=== PATIENT | female | born 1985 | race Caucasian/White ===

== ENCOUNTER 2018-07-04 22:58 | Outpatient (CLI) | payer MEDICAID ==
[~2018-07-04] VITALS: Ht 154.9 cm; Wt 103.0 kg
[~2018-07-04 22:58] MED LIST: PREN1TAB49; [UNRECOGNIZED DRUG - REMARK]
[2018-07-05 00:06] VITALS: BP 106/56; PULSE 59; RESP 18
[2018-07-05] MEDS ORDERED: CYAN500L3 SL (00:10)
--- NOTE | 2018-07-05 01:06 | HP ---
DATE OF ADMISSION: 07/04/2018 HISTORY OF PRESENT ILLNESS: Ms. Ludivina Degroot is a 33-year-old 6, para 4, EDC 10/21/2018 intr auterine at 24 weeks and 3 days gestational age, presented to triage complaining of increas ed urinary frequency with lower abdominal tenderness. She denies any headache, nausea, vomiting, sondra rtness of breath, or visual changes. Her care took place first at [facility]. MEDICAL HISTORY: None. MEDICATIONS: vitamins. PAST SURGICAL HISTORY: None. OBSTETRIC HISTORY: x4 vaginal deliveries, x1 missed AB. GYNECOLOGIC HISTORY: 12, regular 3 to 4 days. Denies any sexually transmitted disease. Sexually ac tive with 1 partner. SOCIAL HISTORY: Denies any smoking, drugs or alcohol. FAMILY HISTORY: None. REVIEW OF SYSTEMS: All within normal except history of present illness. PHYSICAL EXAMINATION: HEENT: Within normal. LUNGS: CTA bilateral. CARDIOVASCULAR: S1, S2, regular rhythm. ABDOMEN: Soft. Suprapubic tenderness, negative CVA bilateral. EXTREMITIES: Negative. No calf tenderness. PELVIC: Vaginal exam deferred. heart tracing category 1. [place], no contractions. Cervical l ength 4.3 cm with estimated weight consistent with 817 grams. ASSESSMENT: Intrauterine at 24 weeks and 3 days gestational age with symptomatic urinary t ract infection. PLAN: Discharged home with Macrobid 100 mg p.o. b.i.d. #14. Dictated By: DAIN PADILLA/FCO Conf#: [id number] DID#: [id number]
--- NOTE | 2018-07-05 06:54 | TRIAGE ---
OB Triage Datetime Report Generated by CPN: 07/05/2018 06:53 Datetime: 07/05/2018 00:39 Stage of : OB Triage Heart Rate FHR Baseline Rate: 150 FHR Baseline Changes: No Baseline Change Variability: Moderate 6-25 bpm Accelerations: 15X15 Datetime: 07/05/2018 00:14 Time of Arrival: 07/04/2018 22:57 EGA: 24.3 Arrived By: Wheelchair Arrived From: Home Chief Complaint: c/o vag pain and cramping since 1300 and sm amt bleeding at 2200 Movement: Present Contractions: Irregular Time Contractions Began: 07/04/2018 13:00 Rupture of Membranes: Denies Vaginal Bleeding: Small Vaginal Discharge: Denies Recent Sexual Intercouse: Denies Abdominal Trauma: Not Applicable Patient Complaints: Cramping; Other Time Provider Notified: 07/05/2018 00:10 Provider Notified: Dr Lerma Initial Plan: EFM,UA,CVL,KAI,EFW Datetime: 07/04/2018 23:59 Stage of : OB Triage Quality: Mild Pattern: Normal: <= 5 Contractions in 10 Minutes Resting Tone [place]: Relaxed Heart Rate FHR Baseline Rate: 150 Monitor Mode: External US FHR Baseline Changes: No Baseline Change Variability: Moderate 6-25 bpm Accelerations: 15X15 Decelerations: None Category: Category I Pain Presence: Intermittent Pain Type: Cramping Pain Location: Abdomen Datetime: 07/04/2018 23:31 Stage of : OB Triage Maternal Assessment Level of Consciousness: Fully Conscious Headache: Denies Blurred Vision: No Respiratory Effort: Unlabored Nausea/Vomiting: Denies RUQ Epigastric Pain: Denies Facial Edema: None Labor Evaluation Monitor Mode: External Quality: Mild Resting Tone [place]: Relaxed Heart Rate FHR Baseline Rate: 140 Monitor Mode: External US Pain Assessment Pain Scale: 7 Pain Presence: Intermittent Pain Type: Cramping Pain Location: Abdomen
== END 2018-07-05 00:52 | disposition home or self-care (01) ==
LOC: OBT 22:58 → L-D 23:00 → OBT 07-05 00:52
PROVIDERS: ATTEND Obstetrics & Gynecology
DX: O23.42 Unspecified infection of urinary tract in pregnancy, second trimester (principal); Z3A.24 24 weeks gestation of pregnancy
CPT/HCPCS: 76815; 76817; 81001; Z7500; G0463

== ENCOUNTER 2018-08-16 19:08 | Outpatient (CLI) | payer MEDICAID ==
[~2018-08-16] VITALS: Ht 152.4 cm; Wt 104.0 kg
[~2018-08-16 19:08] MED LIST changes: +CYAN500L3 SL; -[UNRECOGNIZED DRUG - REMARK]
[2018-08-16 19:59] VITALS: Ht 152.4 cm; Wt 104.0 kg
[2018-08-16 20:00] VITALS: BP 114/55; PULSE 91; RESP 17
[2018-08-16] MEDS ORDERED: GUAIFENESIN 20 MG/ML 5ML CUP PO ONE (20:30)
--- NOTE | 2018-08-16 22:11 | PN ---
Triage Information Date/Time Reason for visit: cough and fever Weeks of Gestation 30 weeks /Para Diabetes: none Hypertention: none Objective Vital Signs Date Temp Pulse Resp B/P (MAP) Pulse Ox O2 O2 Flow FiO2 Time Delivery Rate 08/16/18 99.1 91 17 114/55 Room Air 20:00 (74) Heart Rate: 120's Heart Rate Comments Reactive Contractions: None Results/Medications Result Diagram: 08/16/182125 Results 24 hrs Laboratory Tests Test 08/16/18 19:10 08/16/18 21:26 Urine Color STRAW Urine Clarity SLIGHTLY CLOUDY A Urine pH 7.0 Urine Specific [place] 1.008 Urine Ketones 1+ H Urine Nitrite NEGATIVE Urine Bilirubin NEGATIVE Urine Urobilinogen NEGATIVE Urine Leukocyte Esterase 1+ H Urine Microscopic RBC 1 Urine Microscopic WBC 3 Urine Squamous Epithelial Cells FEW Urine Hemoglobin NEGATIVE Urine Glucose NEGATIVE Urine Total Protein NEGATIVE White Blood Count 6.4 Red Blood Count 3.91 L Hemoglobin 11.9 L Hematocrit 35.1 L Mean Corpuscular Volume 89.8 Mean Corpuscular Hemoglobin 30.4 Mean Corpuscular Hemoglobin Concent 33.9 Red Cell Distribution Width 14.4 Platelet Count 173 Mean Platelet Volume 11.5 H Immature Granulocytes % 0.200 Neutrophils % 76.3 Lymphocytes % 13.7 L Monocytes % 8.2 Eosinophils % 1.3 Basophils % 0.3 Nucleated Red Blood Cells % 0.0 Immature Granulocytes # 0.010 Neutrophils # 4.9 Lymphocytes # 0.9 Monocytes # 0.5 Eosinophils # 0.1 Basophils # 0.0 Nucleated Red Blood Cells # 0.0 Imaging Results KAI 27 Disposition: Discharge Assessment/Plan Follow up in clinic this week Antepartum testing on 08/19/2018 Patient is advised to have work up for polyhydramnios in her clinic JAN VAIL MD August 16, 2018 22:11
== END 2018-08-16 22:20 | disposition home or self-care (01) ==
LOC: OBT 19:08 → L-D 19:10 → OBT 22:20
PROVIDERS: ATTEND Obstetrics & Gynecology
DX: O26.893 Other specified pregnancy related conditions, third trimester (principal); O40.3XX0 Polyhydramnios, third trimester, not applicable or unspecified; Z3A.30 30 weeks gestation of pregnancy
CPT/HCPCS: 76815; 76817; 76818; 81001; 85025; Z7500; G0463

== ENCOUNTER 2018-08-19 10:49 | Outpatient (CLI) | payer MEDICAID ==
[~2018-08-19] VITALS: Ht 152.4 cm; Wt 103.5 kg
[2018-08-19 11:09] VITALS: BP 105/59; PULSE 56; Ht 152.4 cm; Wt 103.5 kg
--- NOTE | 2018-08-19 14:19 | PN ---
Triage Information Date/Time 08/19/1801/28/1415 Reason for visit: Polyhydramnios Weeks of Gestation 31w /Para Diabetes: none Hypertention: none Additional information KAI 27 here for f/u Objective Vital Signs Date Temp Pulse Resp B/P (MAP) Pulse Ox O2 O2 Flow FiO2 Time Delivery Rate 08/19/18 98.0 56 105/59 11:09 (74) Heart Rate: 130's Heart Rate Comments CAT I tracing Contractions: None Results/Medications Imaging Results BPP 11/17 KAI 20.5 Disposition: Discharge Assessment/Plan IUP 31w Hx of polyhydramnios resolved Plan f/u in one week for KAI EVELYNE CRUMP MD August 19, 2018 14:19
--- NOTE | 2018-08-19 16:30 | TRIAGE ---
OB Triage Datetime Report Generated by CPN: 08/19/2018 16:29 Datetime: 08/19/2018 13:36 Stage of : OB Triage Datetime: 08/19/2018 12:20 Labor Evaluation Frequency: 0 Monitor Mode: External Pattern: Normal: <= 5 Contractions in 10 Minutes Resting Tone [place]: Relaxed Heart Rate FHR Baseline Rate: 135 Monitor Mode: External US Variability: Moderate 6-25 bpm Accelerations: 10X10 Decelerations: None Category: Category I Pain Assessment Pain Scale: 0 Pain Presence: None/Denies Pain Type: N/A Pain Goal: 3 Pain Relief Measures: Comfort Measures Datetime: 08/19/2018 11:50 Stage of : OB Triage Datetime: 08/19/2018 11:05 Stage of : OB Triage Assessment Type: Triage Maternal Assessment Level of Consciousness: Fully Conscious DTR's/Clonus: DTRs 2+; No Clonus Headache: Denies Blurred Vision: No Respiratory Effort: Unlabored; Regular Rhythm; Equal Expansion Breath Sounds, Left: Clear and Equal Breath Sounds, Right: Clear and Equal Nausea/Vomiting: Denies RUQ Epigastric Pain: Denies Facial Edema: None Temperature Route: Axillary Fall Risk Assessment History of Falling: (0) No Secondary Diagnosis: (0) No Ambulatory Aid: (0) Bedrest/Nurse Assist IV Therapy: (0) No Gait: (0) Normal/Bedrest/Immobile Mental Status: (0) Oriented to Own Ability Fall Score: 0 Fall Risk Score Definition: No Risk: No action required Labor Evaluation Frequency: 0 Monitor Mode: External Pattern: Normal: <= 5 Contractions in 10 Minutes Resting Tone [place]: Relaxed Heart Rate FHR Baseline Rate: APPLIED Monitor Mode: External US Pain Assessment Pain Scale: 5 Pain Presence: Constant Pain Type: Pressure Pain Location: Perineum Pain Goal: 3 Pain Relief Measures: Comfort Measures Datetime: 08/19/2018 11:03 Time of Arrival: 08/19/2018 10:42 EGA: 31.0 Arrived By: Ambulatory Arrived From: Home Chief Complaint: FOLLOW UP INCREASED KAI Movement: Present Contractions: Denies/Absent Rupture of Membranes: Denies Vaginal Bleeding: None Vaginal Discharge: Denies Recent Sexual Intercouse: Denies Abdominal Trauma: Not Applicable Patient Complaints: None Time Provider Notified: 08/19/2018 11:50 Provider Notified: ESHAGHIAN Initial Plan: MONITOR, BPP, Datetime: 08/16/2018 22:14 Stage of : OB Triage Datetime: 08/16/2018 22:00 Labor Evaluation Frequency: NONE Monitor Mode: External Resting Tone [place]: Relaxed Heart Rate FHR Baseline Rate: 145 Monitor Mode: External US Variability: Moderate 6-25 bpm Accelerations: 15X15 Decelerations: None Category: Category I Datetime: 08/16/2018 21:45 Stage of : OB Triage Temperature Route: Oral Datetime: 08/16/2018 21:00 Labor Evaluation Frequency: NONE Monitor Mode: External Resting Tone [place]: Relaxed Heart Rate FHR Baseline Rate: 150 Monitor Mode: External US Variability: Marked >25 bpm Accelerations: 15X15 Decelerations: None Category: Category I Datetime: 08/16/2018 20:00 Labor Evaluation Frequency: NONE Monitor Mode: External Resting Tone [place]: Relaxed Heart Rate FHR Baseline Rate: 150 Monitor Mode: External US Variability: Moderate 6-25 bpm Accelerations: 15X15 Decelerations: None Category: Category I Datetime: 08/16/2018 19:28 Stage of : OB Triage Assessment Type: Triage Maternal Assessment Level of Consciousness: Fully Conscious DTR's/Clonus: DTRs 2+; No Clonus Headache: Denies Blurred Vision: No Respiratory Effort: Unlabored; Regular Rhythm; Equal Expansion Breath Sounds, Left: Clear and Equal Breath Sounds, Right: Clear and Equal Nausea/Vomiting: Denies RUQ Epigastric Pain: Denies Lower Extremities Edema: None Degree: None Upper Extremities Edema: None Degree: None Facial Edema: None Temperature Route: Oral Fall Risk Assessment History of Falling: (0) No Secondary Diagnosis: (0) No Ambulatory Aid: (0) Bedrest/Nurse Assist IV Therapy: (0) No Gait: (0) Normal/Bedrest/Immobile Mental Status: (0) Oriented to Own Ability Fall Score: 0 Fall Risk Score Definition: No Risk: No action required Pain Assessment Pain Scale: 7 Pain Presence: Constant Pain Type: Pressure Pain Location: Back Pain Goal: 3 Pain Relief Measures: Comfort Measures Vaginal Exam Membrane Status: Intact Datetime: 08/16/2018 19:27 Time of Arrival: 08/16/2018 19:05 EGA: 30.4 Arrived By: Ambulatory Arrived From: Home Chief Complaint: PT PRESENTS TO TRIAGE WITH C/O FLU LIKE SYMPTOMS; ALSO STATES PAIN 7/10 IN HER ART K THAT IS CONSTANT Movement: Present Contractions: Denies/Absent Rupture of Membranes: Denies Vaginal Bleeding: None Vaginal Discharge: Denies Recent Sexual Intercouse: Denies Abdominal Trauma: Not Applicable (Annotations: Data stored by CPN on behalf of user) Patient Complaints: Other Initial Plan: EFM Datetime: 08/16/2018 19:18 Contraction Comments: [place]OCO APPLIED Comments: US APPLIED Datetime: 07/05/2018 00:14 EGA: 24.3
== END 2018-08-19 13:45 | disposition home or self-care (01) ==
LOC: OBT 10:49 → L-D 10:51 → OBT 13:45
PROVIDERS: ATTEND Obstetrics & Gynecology
DX: O40.3XX0 Polyhydramnios, third trimester, not applicable or unspecified (principal); Z3A.31 31 weeks gestation of pregnancy
CPT/HCPCS: 76818; Z7500; G0463

== ENCOUNTER 2018-08-23 17:58 | Emergency (ER) | payer MEDICAID ==
[~2018-08-23] VITALS: Wt 100.0 kg
[2018-08-23 18:08] VITALS: BP 140/76; PULSE 76; RESP 18
[2018-08-23] MEDS ORDERED: ALBUTEROL 0.083% (NEB) 2.5 MG/3 ML AMP HHN STA (19:28)
[2018-08-23] MEDS ORDERED: ACETAMINOPHEN 500 MG TAB PO STA (19:28)
[2018-08-23] MEDS ORDERED: AZIT250T PO (20:22)
[2018-08-23] MEDS ORDERED: ALBU18HF INHALATION (20:22)
[2018-08-23] MEDS ORDERED: ACET500C5 PO (20:22)
--- NOTE | 2018-08-23 20:27 | ERD ---
ER Documentation Chief Complaint Chief Complaint COUGH X 1 WEEK, 34 WEEKS , SEND FROM L&D NOT SEEN THERE HPI 33-year-old female presents with cough for the last week which is productive to have mild wheezing. She denies fevers. She has anterior pleuritic chest pain. She denies calf swelling, hemoptysis, syncope. She is approximately 32 weeks by dates .patient denies abdominal pain or vaginal bleeding. She is being monitored by her OB for possible hyperglycemia. ROS All systems reviewed and are negative except as per history of present illness. Medications Home Meds Active Scripts Acetaminophen* (Tylophen*) 500 Mg Capsule, 1 CAP PO Q6H PRN for PAIN AND OR ELEVATED TEMP, #15 CAP Prov:MARY SANDERSON MD 08/23/18 Azithromycin* (Zithromax*) 250 Mg Tablet, 250 MG PO .ZPACK DIRECTED, #6 TAB TAKE 500 MG (2 TABS) THE FIRST DAY THEN 250 MG (1 TAB) DAYS 2-5 Prov:MARY SANDERSON MD 08/23/18 Albuterol Sulfate* (Ventolin HFA*) 18 Gm Hfa.aer.ad, 2 PUFF INHALATION Q4H, #1 INHALER Prov:MARY SANDERSON MD 08/23/18 Reported Medications Cyanocobalamin (Vitamin B-12) (B-12) 500 Mcg Tab.rapdis, 500 MCG SL DAILY 07/05/18 Vits W-Ca,Fe,Fa(<1MG) () 1 Tab Tablet 09/08/10 Allergies Allergies: Coded Allergies: Penicillins (Verified Allergy, Severe, SOB, 07/05/18) vancomycin (Verified Allergy, Severe, RASH, 07/05/18) PMhx/Soc Medical and Surgical Hx: pt denies Surgical Hx History of Surgery: No Anesthesia Reaction: No Hx Neurological Disorder: No Hx Respiratory Disorders: No Hx Cardiac Disorders: No Hx Psychiatric Problems: No Hx Miscellaneous Medical Probl: No Hx Alcohol Use: No Hx Substance Use: No Hx Tobacco Use: No Smoking Status: Never smoker FmHx Family History: No diabetes, No coronary disease, No other Physical Exam Vitals Vital Signs Date Temp Pulse Resp B/P (MAP) Pulse Ox O2 O2 Flow FiO2 Time Delivery Rate 08/23/18 65 20 100 21 19:46 08/23/18 98.1 76 18 140/76 99 18:08 (97) Physical Exam Const: No acute distress Head: Atraumatic Eyes: Normal Conjunctiva ENT: Normal External Ears, Nose and Mouth. TMs and oropharynx normal. Neck: Full range of motion. No meningismus. Resp: Clear to auscultation bilaterally coarse breath sounds with mild wheeze. No rales or retractions appreciated. Cardio: Regular rate and rhythm, no murmurs Abd: Soft, non tender, non distended. Normal bowel sounds Skin: No petechiae or rashes Back: No midline or flank tenderness Ext: No cyanosis, or edema Neur: Awake and alert Psych: Normal Mood and Affect Results 24 hrs Current Medications Medications Dose Sig/Bonnie Start Time Status Last (Trade) Ordered Route PRN Stop Time Admin Dose Reason Admin Albuterol 5 mg ONCE STAT 08/23/18 DC 08/23/18 (Proventil HHN 19:28 19:46 0.083% (Neb)) 08/23/18 19:30 500 mg ONCE STAT 08/23/18 DC 08/23/18 Acetaminophen PO 19:28 19:37 (Tylenol 08/23/18 19:30 Tab) Procedures/MDM Patient given albuterol treatment x1. Patient had no rales or retractions and had clear lungs on serial exam. Patient presents with URI symptoms with productive cough for last week. She has no signs of pneumonia, hypoxemia. Will defer steroids given her possible history of hypoglycemia. She has OB follow- up. We will treat with Zithromax, Ventolin, Tylenol, primary care follow-up and return precautions. The patient was stable with no new complaints during the ER course. Clinically, there is no current evidence to suggest meningitis, sepsis, acute abdomen, pneumonia, stroke, acute coronary syndrome, pulmonary embolism, aortic dissection or any other emergent condition appearing to require further evaluation or hospitalization. Patient counseled regarding my diagnostic impression and care plan. Prior to discharge all questions answered. Pt agrees with treatment plan and understands strict return precautions. Pt is instructed to follow up with primary care provider within 24-48 hours. Precautionary instructions provided including instructions to return to the ER if not improving or for any worsening or changing symptoms or concerns. Disclaimer: Inadvertent spelling and grammatical errors are likely due to EHR/dictation software use and do not reflect on the overall quality of patient care. Also, please note that the electronic time recorded on this note does not necessarily reflect the actual time of the patient encounter. Departure Diagnosis: Primary Impression: Wheeze Additional Impression: Cough Condition: Stable Patient Instructions: Bronchitis With Wheezing (Adult) Additional Instructions: Cheque otro vez con godfrey doctor primario en el proximo franklin or regresa para mas o nueva simptomas. MARY SANDERSON MD August 23, 2018 20:27
== END 2018-08-23 20:40 | disposition home or self-care (01) ==
LOC: FTE 17:58
DX: O26.893 Other specified pregnancy related conditions, third trimester (principal); R06.2 Wheezing; R05 Cough; Z3A.34 34 weeks gestation of pregnancy
CPT/HCPCS: 94664; Z7502; Z7610

== ENCOUNTER 2018-08-26 10:00 | Outpatient (CLI) | payer MEDICAID ==
[~2018-08-26] VITALS: Ht 152.4 cm; Wt 103.9 kg
[~2018-08-26 10:00] MED LIST changes: +ACET500C5 PO; +ALBU18HF INHALATION; +AZIT250T PO
[2018-08-26 10:40] VITALS: Ht 152.4 cm; Wt 103.9 kg
[2018-08-26 10:41] VITALS: BP 117/59; PULSE 79; RESP 18
--- NOTE | 2018-08-26 12:47 | TRIAGE ---
OB Triage Datetime Report Generated by CPN: 08/26/2018 12:47 Datetime: 08/26/2018 12:19 Stage of : OB Triage Datetime: 08/26/2018 11:35 Labor Evaluation Frequency: 0 Monitor Mode: External Pattern: Normal: <= 5 Contractions in 10 Minutes Resting Tone [place]: Relaxed Heart Rate FHR Baseline Rate: 135 Monitor Mode: External US Variability: Moderate 6-25 bpm Accelerations: 10X10 Decelerations: None Category: Category I Pain Assessment Pain Scale: 0 Pain Presence: None/Denies Pain Type: N/A Pain Goal: 3 Pain Relief Measures: Comfort Measures Datetime: 08/26/2018 10:43 Stage of : OB Triage Datetime: 08/26/2018 10:30 Stage of : OB Triage Assessment Type: Triage Maternal Assessment Level of Consciousness: Fully Conscious DTR's/Clonus: DTRs 2+; No Clonus Headache: Denies Blurred Vision: No Respiratory Effort: Unlabored; Regular Rhythm; Equal Expansion Breath Sounds, Left: Clear and Equal Breath Sounds, Right: Clear and Equal Nausea/Vomiting: Denies RUQ Epigastric Pain: Denies Facial Edema: None Temperature Route: Axillary Fall Risk Assessment History of Falling: (0) No Secondary Diagnosis: (0) No Ambulatory Aid: (0) Bedrest/Nurse Assist IV Therapy: (0) No Gait: (0) Normal/Bedrest/Immobile Mental Status: (0) Oriented to Own Ability Fall Score: 0 Fall Risk Score Definition: No Risk: No action required Labor Evaluation Frequency: 0 Monitor Mode: External Pattern: Normal: <= 5 Contractions in 10 Minutes Resting Tone [place]: Relaxed Heart Rate FHR Baseline Rate: 135 Monitor Mode: External US Variability: Moderate 6-25 bpm Accelerations: 10X10 Decelerations: None Category: Category I Pain Assessment Pain Scale: 0 Pain Presence: None/Denies Pain Type: N/A Pain Goal: 3 Pain Relief Measures: Comfort Measures Datetime: 08/26/2018 10:29 Stage of : OB Triage Time of Arrival: 08/26/2018 09:57 EGA: 33.0 Arrived By: Ambulatory Arrived From: Home Chief Complaint: FOLLOW UP KAI HYDRO, DENIES BLEEDING, LEAKING OR UC'S Movement: Present Contractions: Denies/Absent Rupture of Membranes: Denies Vaginal Bleeding: None Vaginal Discharge: Denies Recent Sexual Intercouse: Denies Abdominal Trauma: Not Applicable Patient Complaints: None Time Provider Notified: 08/26/2018 10:43 Provider Notified: GHAYOORI Initial Plan: MONITOR, KAI Datetime: 08/26/2018 10:05 EGA: 32.0 Datetime: 08/19/2018 11:05 Fall Score: 0 Fall Risk Score Definition: No Risk: No action required Datetime: 08/19/2018 11:03 EGA: 31.0 Datetime: 08/16/2018 19:28 Fall Score: 0 Fall Risk Score Definition: No Risk: No action required Datetime: 08/16/2018 19:27 EGA: 30.4 Datetime: 07/05/2018 00:14 EGA: 24.3
--- NOTE | 2018-08-26 13:09 | PREOPHP ---
DATE OF ADMISSION: 08/26/2018 HISTORY OF PRESENT ILLNESS: Ms. Ludivina Degroot is a 33-year-old 6, para 4, EDC 10/14/2018 intr auterine at 33 weeks gestational age, presented to triage today to recheck her KAI secondar y to history of polyhydramnios. She reports good movement. She denies any contractions, vagin al bleeding, or discharge. Her care took place at [facility]. PAST MEDICAL HISTORY: None. MEDICATIONS: vitamins. PAST SURGICAL HISTORY: None. OBSTETRICAL HISTORY: x4 vaginal delivery, x1 missed AB. GYNECOLOGIC HISTORY: 12, regular 3 to 4 days. Denies any sexually transmitted disease. Sexually ac tive with 1 partner. SOCIAL HISTORY: Denies any smoking, drugs or alcohol. FAMILY HISTORY: None. REVIEW OF SYSTEMS: All within normal except history of present illness. PHYSICAL EXAMINATION: HEENT: Within normal. LUNGS: CTA bilateral. CARDIOVASCULAR: S1, S2, regular rhythm. ABDOMEN: Gravid, nontender. Negative CVA bilateral. EXTREMITIES: Negative. No calf tenderness. PELVIC: Vaginal exam deferred. heart tracing category 1. [place], no contractions. Biophysical profile 11/17 with an KAI of 21.2. ASSESSMENT: Intrauterine at 33 weeks gestational age with polyhydramnios stable with good movement. PLAN: Discharge home today with the recommendations of followup with nonstress test, biophysical pro file twice weekly. The patient has an appointment the following Wednesday with the perinatologist. Dictated By: DAIN PADILLA/FCO Conf#: [id number] DID#: [id number]
== END 2018-08-26 12:30 | disposition home or self-care (01) ==
LOC: OBT 10:00 → L-D 10:01 → OBT 12:30
PROVIDERS: ATTEND Obstetrics & Gynecology
DX: O40.3XX0 Polyhydramnios, third trimester, not applicable or unspecified (principal); Z3A.33 33 weeks gestation of pregnancy
CPT/HCPCS: 76818; Z7500; G0463

== ENCOUNTER 2018-09-15 17:16 | Inpatient (IN) | payer MEDICAID ==
[~2018-09-15] VITALS: Ht 152.4 cm; Wt 88.2 kg
[2018-09-15] MEDS: LACTATED RINGER'S 1,000 ML IV SCH (00:30)
[~2018-09-15 17:16] MED LIST changes: -ACET500C5 PO; -ALBU18HF INHALATION; -AZIT250T PO; -CYAN500L3 SL
[2018-09-15 17:36] VITALS: Ht 152.4 cm; Wt 88.2 kg
[2018-09-15 17:41] VITALS: BP 127/64
[2018-09-15] MEDS ORDERED: BETAMET NA PHOS/AC(6 MG/ML) 2 ML INJ SYG IM ONE (18:00)
--- NOTE | 2018-09-15 20:49 | PREOPHP ---
DATE OF ADMISSION: 09/15/2018 HISTORY OF PRESENT ILLNESS: Ms. Ludivina Degroot is a 33-year-old 6, para 4, EDC of 10/21/2018 i ntrauterine at 35 weeks and 6 days gestational age, was sent from clinic today for rule out labor. She reports of having contractions since early this morning. She denies any vaginal bleedin g or discharge. She denies any nausea, vomiting, shortness of breath or visual changes. Her [facility] care took place at . MEDICAL HISTORY: GDM A1. MEDICATIONS: vitamins. PAST SURGICAL HISTORY: None. OBSTETRICAL HISTORY: x4 vaginal delivery, x1 missed AB. GYNECOLOGIC HISTORY: 12, regular 3 to 4 days. Denies any sexually transmitted infections. Sexually active with 1 partner. SOCIAL HISTORY: Denies any smoking, drugs or alcohol. FAMILY HISTORY: None. REVIEW OF SYSTEMS: All within normal except history of present illness. PHYSICAL EXAMINATION: HEENT: Within normal. LUNGS: CTA bilateral. CARDIOVASCULAR: S1, S2. Regular rate, rhythm. ABDOMEN: Gravid, nontender. Negative CVA bilateral. EXTREMITIES: Negative edema. No calf tenderness. PELVIC: Vaginal exam: 2 cm, 50%, -2 station. No cervical change since evaluated in the office. Fe [place] heart tracing category 1. Tocometer: Regular contractions. ASSESSMENT: Intrauterine at 35 weeks and 6 days gestational age, rule out labor. PLAN: Start IV hydration. Consider admit patient to labor and delivery if contractions persist for steroid treatment and GBS prophylaxis. Dictated By: DAIN PADILLA/FCO Conf#: [id number] DID#: [id number]
[2018-09-15] MEDS ORDERED: LACTATED RINGER'S 1,000 ML IV ONE (21:00)
[2018-09-15] MEDS ORDERED: ONDANSETRON 4 MG INJ IV PRN (23:30)
[2018-09-15] MEDS ORDERED: ACETAMINOPHEN 325 MG TAB PO PRN (23:30)
[2018-09-16] MEDS: LACTATED RINGER'S 1,000 ML IV SCH ×3 (01:26→17:44)
[2018-09-16] MEDS: DOCUSATE SODIUM 100 MG CAP PO SCH ×2 (09:45→21:15)
[2018-09-16] MEDS: PRENATAL VITAMIN PO SCH (09:45)
[2018-09-16] MEDS: BETAMET NA PHOS/AC(6 MG/ML) 2 ML INJ SYG IM SCH (14:54)
[2018-09-16] MEDS: NIFEdipine 10 MG CAP PO SCH ×2 (15:31→21:00)
--- NOTE | 2018-09-16 18:11 | PN ---
DATE: 09/16/2018 HISTORY OF PRESENT ILLNESS: The patient is a 33-year-old G6, P4 with 4 previous vaginal deliveries, was admitted secondary to contractions. Overnight, she was only placed for IV hydration. Her cervix is 2 cm dilated; however, thick and high. She has had some bloody show. KAI is elevated for gestational age at 24 and she has gestational diab etes, diet controlled. Placenta is anterior without evidence of previa per report. RECOMMENDATIONS: Tocolysis, betamethasone. For further questions, contact me. Dictated By: LEOPOLDO BURCH MD ST/NTS Conf#: [id number] DID#: [id number] CC: DAIN VILLANUEVA MD; RICHARD MARTINEZ MD;*End*
--- NOTE | 2018-09-16 18:35 | QN ---
Documentation Comment progress note patient seen and evaluated no complaints vs stable afebrile ab gravid nt extremity no edema no calf tenderness ve no active bleeding fhr cat 1 toco occasional ctx Intrauterine at 36 weeks and days gestational ag gdma 1 ctx currently on procardia for tocolysis and steriod tx p/ complete steriod treatment ptl precaution DAIN VILLANUEVA MD Sep 16, 2018 18:35
[2018-09-16] MEDS: INSULIN ASPART [NOVOLOG] 3 ML PEN SC PRN (20:36)
[2018-09-16] MEDS ORDERED: AL HYDROX/MG HYDROX/SIMETH 30 ML CUP PO ONE (21:00)
--- NOTE | 2018-09-16 21:50 | PN ---
Date/Time of Note Date/Time of Note DATE: 09/16/18 TIME: 21:47 OB Subjective Subjective Subjective c/o chest pain, no dypnea OB Objective Heart: Rhythm Normal Abdomen: WNL Extremities: Normal OB Assessment/Plan Other Assessment: IUP 35 weeks, polyhidramnious with chest pain Other plan: [place] po given, no improvement, order ECG, ask hospitalist to evaluate the patient MARY BARILLAS MD Sep 16, 2018 21:50
[2018-09-17] MEDS: NIFEdipine 10 MG CAP PO SCH ×3 (02:59→15:33)
[2018-09-17] MEDS: LACTATED RINGER'S 1,000 ML IV SCH ×3 (08:06→23:26)
[2018-09-17] MEDS: PRENATAL VITAMIN PO SCH (08:21)
[2018-09-17] MEDS: DOCUSATE SODIUM 100 MG CAP PO SCH ×2 (08:26→21:00)
--- NOTE | 2018-09-17 08:33 | PN ---
Date/Time of Note Date/Time of Note DATE: 09/17/18 TIME: 08:29 OB Subjective Subjective Subjective 33-year-old 6 para 4 at 35 weeks and 1 day of gestation with estimated date of delivery October 21, 2018 Patient was admitted for labor and polyhydramnios with KAI of 24 She is gestational diabetic diet control and currently on sliding scale insulin Patient is receiving betamethasone for lung maturity; she has received 1 dose and the second dose is due today She had an episode of chest pain last night which rapid response team was called and they evaluated and assessed the patient EKG and chest x-ray and troponin levels were done Patient reports a history of bronchitis OB Objective Objective Objective Patient is reporting positive movement, denies vaginal bleeding or leaking fluid, denies uterine contractions Patient complains of some chest pain, no shortness of breath O2 sat 99% in room air VS - Last 72 Hours, by Label Date Temp Pulse Resp B/P (MAP) Pulse Ox O2 O2 Flow FiO2 Time Delivery Rate 09/16/18 58 22:42 09/15/18 98.1 127/64 17:41 (85) PROCEDURE: US OB. CLINICAL INDICATION: Station of diabetes TECHNIQUE: Multiple sonographic images of the pelvis were obtained. The images were reviewed on a PACS workstation. COMPARISON: 08/26/2018 FINDINGS: There is a single live intrauterine . cardiac activity is identified at a rate of 130 beats per minute. presentation is cephalic. Placenta is anterior grade II. No placenta previa or abruption is seen. Biophysical profile score is as follows: Breathing 2 Movements 2 Tone 2 Fluid volume 2 Amniotic fluid index = 24 cm Total biophysical profile score = 8/8 IMPRESSION: Biophysical profile score = 8/8 Polyhydramnios RPTAT: HH .Alireza Prasad MD, Date Time Electronically viewed and signed by .Alireza Prasad MD, on 09/15/2018 18:56 .W/ CC: DAIN VILLANUEVA MD [id number] HEENT: WNL Heart: Rhythm Normal Lungs: Clear, Equal Abdomen: WNL Extremities: Normal Reflexes: Normal Cervical Dilatation: 2cm Station: -3 Membranes: Intact Heart Rate: 140's Accelerations: Accelerations Present Decelerations: No Decelerations Varibility: Moderate Contractions on Admission: None OB Assessment/Plan Reason for admission: labor, other (Polyhydramnios) Other plan: 35 weeks and 1 day of gestation with labor and polyhydramnios Status post 1 dose of betamethasone; second dose due today Continue with Procardia 20 mg 6 hours Patient has already been seen by perinatologist Hospitalist consultation pending Copies To: CC: DAIN VILLANUEVA MD ; GE ARMSTRONG MD Sep 17, 2018 08:33
--- NOTE | 2018-09-17 09:46 | CONS ---
Assessment/Plan Assessment/Plan Hospital Course (Demo Recall) Patient is a female with a past medical history significant for diabetes who presents to [facility] for contractions to rule out labor. During this hospitalization patient developed substernal chest pain and internal medicine was consulted. Patient already had 2- troponins, patient's chest pain began yesterday was substernal does not radiate. There is no change with movement or what she does, however patient states that the chest pain is better. Patient has denies any significant shortness of breath or any other acute issues. Patient appears comfortable. Patient denies shortness of breath, dizziness, vision changes, bladder dysfunction, leg dysfunction Objective Physical exam General: Patient is laying in bed and answers questions appropriately Mentation: Patient is alert and oriented 4, Head: Normocephalic atraumatic Eyes: EOMI, pupils reactive to light Neck: Supple, nontender, midline Respiratory: Clear to auscultation bilaterally Cardiovascular: regular rate, no obvious murmurs Gastrointestinal: mildly tender to palpation, bowel sounds heard. Distended abdomen Neurological: Moves all extremities spontaneously Skin: No new skin lesions Assessment and plan Chest pain -Very likely musculoskeletal as patient's pain is reproduced very easily with palpation in the substernal area -EKG is not exactly normal, will consult cardiology, Dr. Sosa -Troponins are negative x2, trending 1 more troponin, echocardiogram pending Diabetes mellitus -Patient on insulin regimen will in the hospital, A1c pending Questionable hypertension -Patient on antihypertensives however does not states she has a history of hypertension or take medications, monitor closely, treat as needed Disposition -Pending cardiology consult, although chest pain is highly likely musculoskeletal. Consultation Date/Type/Reason Admit Date/Time Sep 15, 2018 at 22:55 Date/Time of Note DATE: 09/17/18 TIME: 09:45 Past Medical History Home Meds Reported Medications Vits W-Ca,Fe,Fa(<1MG) () 1 Tab Tablet 09/08/10 Medications Current Medications Lactated Ringer's 1,000 ml @ 125 mls/hr Q8H IV Last administered on 09/17/18at 08:06; Admin Dose 125 MLS/HR; Start 09/15/18 at 23:21 Prenat Multivit/ [place]/Iron/Folic Ac () 1 tab DAILY PO Last administered on 09/17/18at 08:21; Admin Dose 1 TAB; Start 09/16/18 at 09:00 Docusate Sodium (Colace) 100 mg BID PO Last administered on 09/17/18at 08:26; Admin Dose 100 MG; Start 09/16/18 at 09:00 Acetaminophen (Tylenol Tab) 650 mg Q4H PRN PO .PAIN OR TEMP; Start 09/15/18 at 23:30 Ondansetron HCl (Zofran Inj) 4 mg Q6H PRN IV NAUSEA/VOMITING; Start 09/15/18 at 23:30 Betamethasone Acet/Betameth SodPhos (Celestone Soluspan) 12 mg Q24H IM Last administered on 09/16/18at 14:54; Admin Dose 12 MG; Start 09/16/18 at 13:00; Stop 09/17/18 at 13:01 Nifedipine (Procardia) 20 mg Q6 PO Last administered on 09/17/18at 08:21; Admin Dose 20 MG; Start 09/16/18 at 15:30 Insulin Aspart (Novolog Insulin Pen) 60-12,0=0 121-14,0=2 un... 2 HOURS AFTER MEALS PRN SC ELEVATED GLUCOSE Last administered on 09/16/18at 20:36; Admin Dose 8 UNIT; Start 09/16/18 at 15:30 Allergies: Coded Allergies: Penicillins (Verified Allergy, Severe, SOB, 07/05/18) vancomycin (Verified Allergy, Severe, RASH, 07/05/18) Social History Smoking Status: Never smoker Exam/Review of Systems Exam Vitals Vital Signs Date Temp Pulse Resp B/P (MAP) Pulse Ox O2 O2 Flow FiO2 Time Delivery Rate 09/16/18 58 22:42 09/15/18 98.1 127/64 17:41 (85) Intake and Output 09/16/18 09/16/18 09/17/18 1515:00 23:00 07:00 IntakeIntake Total 490 ml 1350 ml 1000 ml OutputOutput Total 400 ml 1200 ml 1500 ml BalanceBalance 90 ml 150 ml -500 ml Results Result Diagram: 09/17/18 0932 Results 24hrs Laboratory Tests Test 09/16/18 11:32 09/16/18 15:03 09/16/18 20:01 09/16/18 22:50 Bedside Glucose 84 122 184 Troponin I < 0.012 Test 09/17/18 05:56 09/17/18 07:32 09/17/18 09:32 Troponin I < 0.012 Bedside Glucose 108 White Blood Count 9.1 Red Blood Count 3.97 L Hemoglobin 11.9 L Hematocrit 35.6 L Mean Corpuscular Volume 89.7 Mean Corpuscular 30.0 Hemoglobin Mean Corpuscular 33.4 Hemoglobin Concent Red Cell Distribution 13.9 Width Platelet Count 176 Mean Platelet Volume 12.4 H Immature Granulocytes % 0.500 H Neutrophils % 76.8 Lymphocytes % 17.0 Monocytes % 5.6 Eosinophils % 0.0 Basophils % 0.1 Nucleated Red Blood 0.0 Cells % Immature Granulocytes # 0.050 H Neutrophils # 7.0 Lymphocytes # 1.6 Monocytes # 0.5 Eosinophils # 0.0 Basophils # 0.0 Nucleated Red Blood 0.0 Cells # Medications Medication Current Medications Lactated Ringer's 1,000 ml @ 125 mls/hr Q8H IV Last administered on 09/17/18at 08:06; Admin Dose 125 MLS/HR; Start 09/15/18 at 23:21 Prenat Multivit/ [place]/Iron/Folic Ac () 1 tab DAILY PO Last administered on 09/17/18 08:21; Admin Dose 1 TAB; Start 09/16/18 at 09:00 Docusate Sodium (Colace) 100 mg BID PO Last administered on 09/17/18at 08:26; Admin Dose 100 MG; Start 09/16/18 at 09:00 Acetaminophen (Tylenol Tab) 650 mg Q4H PRN PO .PAIN OR TEMP; Start 09/15/18 at 23:30 Ondansetron HCl (Zofran Inj) 4 mg Q6H PRN IV NAUSEA/VOMITING; Start 09/15/18 at 23:30 Betamethasone Acet/Betameth SodPhos ([place] Soluspan) 12 mg Q24H IM Last administered on 09/16/18at 14:54; Admin Dose 12 MG; Start 09/16/18 at 13:00; Stop 09/17/18 at 13:01 Nifedipine (Procardia) 20 mg Q6 PO Last administered on 09/17/18at 08:21; Admin Dose 20 MG; Start 09/16/18 at 15:30 Insulin Aspart (Novolog Insulin Pen) 60-12,0=0 121-14,0=2 un... 2 HOURS AFTER MEALS PRN SC ELEVATED GLUCOSE Last administered on 09/16/18at 20:36; Admin Dose 8 UNIT; Start 09/16/18 at 15:30 AYANNA DAVILA Sep 17, 2018 09:46
[2018-09-17] MEDS: INSULIN ASPART [NOVOLOG] 3 ML PEN SC PRN ×3 (09:58→20:26)
[2018-09-17] MEDS: BETAMET NA PHOS/AC(6 MG/ML) 2 ML INJ SYG IM SCH (14:20)
--- NOTE | 2018-09-17 15:38 | RADRPT ---
Echocardiogram Report Patient Name: OMARI FONTAINEPatient ID: [id number] : 1985 (33y 3m)Study Date: 09/17/2018 1:49:17 PM Gender: FAccession #: [id number] [place] [facility] [place] [facility] Ref.Physician: AYANNA DAVILA Height(Cm): 152 BSA: 1.93Weight(Kg): 88 Quality: AdequateOrder Physician: AYANNA DAVILA Account #: Procedures: Echocardiographic Report: Transthoracic echocardiogram with 2D, M-Mode, and doppler examination, poor subcostal images. Indications: Chest Pain. Measurements: 2D/M Mode Doppler Measurement Value Normal Range Measurement Value Normal Range LVIDd 2D 4.8 [ 3.8 - 5.2 ] cm AV Peak Andrew 1.8 [ 100.0 - 170.0 ] cm/se c LVIDs 2D 3.0 [ 2.2 - 3.5 ] cm AV Peak PG 13.0 [ 2.0 - 9.0 ] mmHg LVPWd 2D 0.7 [ 0.6 - 0.9 ] cm LVOT Peak Andrew 1.1 [ 70.0 - 110.0 ] cm/sec IVSd 2D 0.9 [ 0.6 - 0.9 ] cm LVOT Peak PG 5.0 [ 2.0 - 6.0 ] mmHg AoR Diam 2D 3.3 [ 2.3 - 3.1 ] cm MV E Peak Andrew 1.2 [ 60.0 - 130.0 ] cm/sec EDV 2D 110.0 [ 46.0 - 106.0 ] ml MV A Peak Andrew 0.9 [ 100.0 - 120.0 ] cm/se c ESV 2D 35.9 [ 14.0 - 42.0 ] ml MV E/A 1.3 [ 0.8 - 1.5 ] ratio EF 2D 67.4 [ 54.0 - 74.0 ] percent MV PHT 53.0 [ 20.0 - 100.0 ] msec LA Dimen 2D 4.5 [ 2.7 - 3.8 ] cm MV Decel Time 182 [ 104 - 258 ] msec MV Decel Williams 7 Lat E` Andrew 0.2 [ 10.0 - 15.0 ] cm/sec Lateral E/E` 6.6 [ 1.0 - 2.0 ] ratio Med E` Andrew 0.1 cm/sec MV E/A 1.3 [ 0.8 - 1.5 ] ratio MVA PHT 4.2 [ 2.0 - 4.0 ] cm2 TR Peak Andrew 2.5 [ 100.0 - 280.0 ] cm/se c TR Peak PG 24.0 mmHg PV Peak Andrew 1.3 [ 40.0 - 80.0 ] cm/sec PV Peak PG 7.0 mmHg RVSP 27.0 [ 10.0 - 36.0 ] mmHg RA Pressure 3.0 mmHg Findings: Left Ventricle: Normal left ventricular systolic function. Normal left ventricular cavity size. Normal left ventricular wall thickness. Ejection fraction is visually estimated at >65 %. Tissue Doppler/Mitral Doppler indices are within normal limits. E/E'= 7. Right Ventricle: Normal right ventricular size. Normal right ventricular systolic function. Left Atrium: Upper limit of normal left atrial size. Right Atrium: The right atrium is normal in size. Atrial Septum: Not well visualized. Mitral Valve: Normal appearance and function of the mitral valve with trace physiologic regurgitation. Aortic Valve: Normal appearance of the aortic valve. Trace aortic valve regurgitation. Tricuspid Valve: Normal appearance of the tricuspid valve. The estimated Peak RVSP is 27 mmHg. There is mild tricuspid regurgitation. Pulmonic Valve: Normal pulmonic valve appearance. There is trace pulmonic regurgitation. Pericardium: Normal pericardium with no significant pericardial effusion. Aorta: Normal aortic root. IVC: Normal size and normal respiratory collapse consistent with normal right atrial pressure. Pulmonary Artery: Normal pulmonary artery size. Conclusions: Normal left ventricular systolic function. Normal left ventricular cavity size. Normal left ventricular wall thickness. Ejection fraction is visually estimated at >65 %. Tissue Doppler/Mitral Doppler indices are within normal limits. E/E'= 7. Electronically Signed By: Sami Sosa 2018-09-17 15:37:22 PDT
--- NOTE | 2018-09-17 15:54 | RADRPT ---
Vent Rate: 51 bpm RR Interval: 1180 msec GA Interval: 133 msec QRS Duration: 97 msec QT Interval: 475 msec QTC Interval: 437 msec P-R-T [place]: 30 - 46 - 13 degrees Sinus rhythm...normal P axis, V-rate 50- 99 Electronically Signed By: Satnam Bermeo
--- NOTE | 2018-09-17 17:17 | CONS ---
Assessment/Plan Assessment/Plan Hospital Course (Demo Recall) Assessment: Chest pain - appears musculoskeletal, ruled out for myocardial infarction, no evidence on chest x-ray or echocardiogram to suggest aortic dissection Diabetes mellitus Intrauterine with labor - per obstetrics Recommendations: -no additional cardiac work up at this time Consultation Date/Type/Reason Admit Date/Time Sep 15, 2018 at 22:55 Type of Consult Cardiology Date/Time of Note DATE: 09/17/18 TIME: 17:10 Hx of Present Illness The patient is a 33 year-old female who is admitted with labor. She reports two days of retrosternal chest pain, with reproducible tenderness on exam. EKG shows normal sinus rhythm without ischemic changes. Troponins have been negative x 3. Chest x-ray with normal cardiac silhouette and without mediastinal widening. Transthoracic echocardiogram normal with normal aortic root. 14 point review of systems negative other than per HPI. Past Medical History Medical History: diabetes Home Meds Reported Medications Vits W-Ca,Fe,Fa(<1MG) () 1 Tab Tablet 09/08/10 Medications Current Medications Lactated Ringer's 1,000 ml @ 125 mls/hr Q8H IV Last administered on 09/17/18at 15:28; Admin Dose 125 MLS/HR; Start 09/15/18 at 23:21 Prenat Multivit/ [place]/Iron/Folic Ac () 1 tab DAILY PO Last administered on 09/17/18at 08:21; Admin Dose 1 TAB; Start 09/16/18 at 09:00 Docusate Sodium (Colace) 100 mg BID PO Last administered on 09/17/18at 08:26; Admin Dose 100 MG; Start 09/16/18 at 09:00 Acetaminophen (Tylenol Tab) 650 mg Q4H PRN PO .PAIN OR TEMP; Start 09/15/18 at 23:30 Ondansetron HCl (Zofran Inj) 4 mg Q6H PRN IV NAUSEA/VOMITING; Start 09/15/18 at 23:30 Nifedipine (Procardia) 20 mg Q6 PO Last administered on 09/17/18at 15:33; Admin Dose 20 MG; Start 09/16/18 at 15:30 Insulin Aspart (Novolog Insulin Pen) 60-12,0=0 121-14,0=2 un... 2 HOURS AFTER MEALS PRN SC ELEVATED GLUCOSE Last administered on 09/17/18at 14:18; Admin Dose 2 UNIT; Start 09/16/18 at 15:30 Allergies: Coded Allergies: Penicillins (Verified Allergy, Severe, SOB, 07/05/18) vancomycin (Verified Allergy, Severe, RASH, 07/05/18) Family History Significant Family History: no pertinent family hx Social History Smoking Status: Never smoker Exam/Review of Systems Vital Signs Vitals Vital Signs Date Temp Pulse Resp B/P (MAP) Pulse Ox O2 O2 Flow FiO2 Time Delivery Rate 09/16/18 58 22:42 09/15/18 98.1 127/64 17:41 (85) Intake and Output 09/16/18 09/16/18 09/17/18 1515:00 23:00 07:00 IntakeIntake Total 490 ml 1350 ml 1000 ml OutputOutput Total 400 ml 1200 ml 1500 ml BalanceBalance 90 ml 150 ml -500 ml Exam Constitutional: alert, well developed Psych: no complaints, nl mood/affect Head: normocephalic, atraumatic Eyes: nl conjunctiva, nl lids ENMT: nl external ears & nose, nl nasal mucosa & septum Neck: supple, non-tender Respiratory: clear to auscultation, normal air movement Cardiovascular: regular rate and rhythm Gastrointestinal: soft Musculoskeletal: nl extremities to inspection Extremities: No cyanosis, No clubbing, No edema Neurological: nl mental status Labs Result Diagram: 09/17/18 0932 09/17/18 0932 Results 24hrs Laboratory Tests Test 09/16/18 20:01 09/16/18 22:50 09/17/18 05:56 09/17/18 07:32 Bedside Glucose 184 108 Troponin I < 0.012 < 0.012 Test 09/17/18 09:32 09/17/18 09:43 09/17/18 12:37 09/17/18 14:08 White Blood Count 9.1 Red Blood Count 3.97 L Hemoglobin 11.9 L Hematocrit 35.6 L Mean Corpuscular Volume 89.7 Mean Corpuscular 30.0 Hemoglobin Mean Corpuscular 33.4 Hemoglobin Concent Red Cell Distribution 13.9 Width Platelet Count 176 Mean Platelet Volume 12.4 H Immature Granulocytes % 0.500 H Neutrophils % 76.8 Lymphocytes % 17.0 Monocytes % 5.6 Eosinophils % 0.0 Basophils % 0.1 Nucleated Red Blood 0.0 Cells % Immature Granulocytes # 0.050 H Neutrophils # 7.0 Lymphocytes # 1.6 Monocytes # 0.5 Eosinophils # 0.0 Basophils # 0.0 Nucleated Red Blood 0.0 Cells # Sodium Level 138 Potassium Level 3.5 Chloride Level 110 Carbon Dioxide Level 20 L Anion Gap 8 Blood Urea Nitrogen 5 L Creatinine 0.45 Est Glomerular Filtrat > 60 Rate mL/min Glucose Level 146 Calcium Level 9.3 Total Bilirubin 0.6 Direct Bilirubin 0.00 Indirect Bilirubin 0.6 Aspartate Amino 36 Transf (AST/SGOT) Alanine 52 Aminotransferase (ALT/SG PT) Alkaline Phosphatase 117 Total Protein 6.7 Albumin 3.2 L Globulin 3.50 H Albumin/Globulin Ratio 0.91 Bedside Glucose 142 137 Troponin I < 0.012 Medications Medications Current Medications Lactated Ringer's 1,000 ml @ 125 mls/hr Q8H IV Last administered on 09/17/18 15:28; Admin Dose 125 MLS/HR; Start 09/15/18 at 23:21 Prenat Multivit/ [place]/Iron/Folic Ac () 1 tab DAILY PO Last administered on 09/17/18 08:21; Admin Dose 1 TAB; Start 09/16/18 at 09:00 Docusate Sodium (Colace) 100 mg BID PO Last administered on 09/17/18 08:26; Admin Dose 100 MG; Start 09/16/18 at 09:00 Acetaminophen (Tylenol Tab) 650 mg Q4H PRN PO .PAIN OR TEMP; Start 09/15/18 at 23:30 Ondansetron HCl (Zofran Inj) 4 mg Q6H PRN IV NAUSEA/VOMITING; Start 09/15/18 at 23:30 Nifedipine (Procardia) 20 mg Q6 PO Last administered on 09/17/18 15:33; Admin Dose 20 MG; Start 09/16/18 at 15:30 Insulin Aspart (Novolog Insulin Pen) 60-12,0=0 121-14,0=2 un... 2 HOURS AFTER MEALS PRN SC ELEVATED GLUCOSE Last administered on 09/17/18 14:18; Admin Dose 2 UNIT; Start 09/16/18 at 15:30 ANTONI GRAVES MD Sep 17, 2018 17:17
[2018-09-18] MEDS: LACTATED RINGER'S 1,000 ML IV SCH ×3 (07:08→23:42)
[2018-09-18] MEDS: PRENATAL VITAMIN PO SCH (09:10)
[2018-09-18] MEDS: DOCUSATE SODIUM 100 MG CAP PO SCH ×2 (09:10→21:34)
--- NOTE | 2018-09-18 09:24 | QN ---
Documentation Comment progress note patient seen and evaluated no complaints no ctx, no chest pain, sob vs stable afebrile HEENT wnl lung cta b/l ab gravid nt extremity no edema no calf tenderness ve no active bleeding fhr cat 1 toco occasional ctx Intrauterine at 35 weeks and 2 days gestational ag gdma 1 ctx resolved, polyhydramnios p/ continue to monitor patient closely labor precautions f/u with perinatology DAIN VILLANUEVA MD Sep 18, 2018 09:24
[2018-09-18] MEDS ORDERED: POTASSIUM CHLORIDE (SR) 20 MEQ TAB PO ONE (09:30)
--- NOTE | 2018-09-18 12:40 | PN ---
Date/Time of Note Date/Time of Note DATE: 09/18/18 TIME: 12:38 Objective Vitals Vital Signs Date Temp Pulse Resp B/P (MAP) Pulse Ox O2 O2 Flow FiO2 Time Delivery Rate 09/16/18 58 22:42 09/15/18 98.1 127/64 17:41 (85) Intake and Output 09/17/18 09/17/18 09/18/18 1515:00 23:00 07:00 IntakeIntake Total 1000 ml 850 ml 1115 ml OutputOutput Total 1000 ml 2300 ml 1300 ml BalanceBalance 0 ml -1450 ml -185 ml Results Result Diagram: 09/18/1862409/18/18624 Medications Medications Current Medications Lactated Ringer's 1,000 ml @ 125 mls/hr Q8H IV Last administered on 09/18/18at 07:08; Admin Dose 125 MLS/HR; Start 09/15/18 at 23:21 Prenat Multivit/ [place]/Iron/Folic Ac () 1 tab DAILY PO Last admi nistered on 09/18/18at 09:10; Admin Dose 1 TAB; Start 09/16/18 at 09:00 Docusate Sodium (Colace) 100 mg BID PO Last administered on 09/18/18at 09:10; Admin Dose 100 MG; Start 09/16/18 at 09:00 Acetaminophen (Tylenol Tab) 650 mg Q4H PRN PO .PAIN OR TEMP; Start 09/15/18 at 23:30 Ondansetron HCl (Zofran Inj) 4 mg Q6H PRN IV NAUSEA/VOMITING; Start 09/15/18 at 23:30 Insulin Aspart (Novolog Insulin Pen) 60-12,0=0 121-14,0=2 un... 2 HOURS AFTER MEALS PRN SC ELEVATED GLUCOSE Last administered on 09/17/18at 20:26; Admin Dose 4 UNIT; Start 09/16/18 at 15:30 VTE Prophylaxis SCD contraindication: other Lines/Catheters IV Catheter Type: Fatima in Place: No Assessment/Plan Hospital Course Subjective Still some residual chest issues however minimal to almost no discomfort Objective Physical exam General: Patient is laying in bed and answers questions appropriately Mentation: Patient is alert and oriented 4, Head: Normocephalic atraumatic Eyes: EOMI, pupils reactive to light Neck: Supple, nontender, midline Respiratory: Clear to auscultation bilaterally Cardiovascular: regular rate, no obvious murmurs Gastrointestinal: mildly tender to palpation, bowel sounds heard. 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 AYANNA DAVILA Sep 18, 2018 12:40
[2018-09-18] MEDS: INSULIN ASPART [NOVOLOG] 3 ML PEN SC PRN ×2 (14:15→20:13)
--- NOTE | 2018-09-19 09:09 | QN ---
Documentation Comment progress note patient seen and evaluated no complaints no ctx, no chest pain, sob vs stable afebrile HEENT wnl lung cta b/l ab gravid nt extremity no edema no calf tenderness ve no active bleeding fhr cat 1 toco occasional ctx Intrauterine at 35 weeks and 3 days gestational ag gdma 1 ctx resolved, polyhydramnios p/ continue to monitor patient closely labor precautions bpp today f/u with perinatology DAIN VILLANUEVA MD Sep 19, 2018 09:09
[2018-09-19] MEDS: DOCUSATE SODIUM 100 MG CAP PO SCH ×2 (09:25→21:29)
[2018-09-19] MEDS: PRENATAL VITAMIN PO SCH (09:25)
[2018-09-19] MEDS: LACTATED RINGER'S 1,000 ML IV SCH (09:25)
[2018-09-20] MEDS: DOCUSATE SODIUM 100 MG CAP PO SCH (09:04)
[2018-09-20] MEDS: PRENATAL VITAMIN PO SCH (09:04)
--- NOTE | 2018-09-20 18:02 | QN ---
Documentation Comment progress note patient seen and evaluated no complaints, pt has minimal vaginal spotting last night no ctx, no chest pain, sob vs stable afebrile HEENT wnl lung cta b/l ab gravid nt extremity no edema no calf tenderness ve no active bleeding fhr cat 1 toco occasional ctx Intrauterine at 35 weeks and 4 days gestational ag gdma 1 ctx resolved p/ continue to monitor patient closely labor precautions consider discharge home tomorrow if clear by perinatology f/u with perinatology DAIN VILLANUEVA MD Sep 20, 2018 18:02
[2018-09-21] MEDS: PRENATAL VITAMIN PO SCH (11:01)
[2018-09-21] MEDS: DOCUSATE SODIUM 100 MG CAP PO SCH (11:01)
--- NOTE | 2018-09-21 18:38 | PD.PPDC ---
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
--- NOTE | 2018-09-21 21:30 | DS ---
DATE OF ADMISSION: 09/15/2018 DATE OF DISCHARGE: PRIMARY DIAGNOSIS: Intrauterine at 35 weeks gestational age with contractions poly hydramnios anemia, undelivered. PROCEDURE: None. CONDITION ON DISCHARGE: Stable. ACTIVITY: None per vagina, no, no heavy lifting. DIET: 2000-kilocalorie diet. DISCHARGE SUMMARY: Ms. Ludivina Degroot presented to triage on 09/15/2018 for contractions. She was 2 cm dilated, 50% effaced, -2 station. After consultation with perinatologist recommended stero id treatment with tocolysis. The patient also received IV hydration. She is currently stable. She denies any contractions, vaginal bleeding, or discharge. She will be discharged home today with stri ct labor precautions and kick count. She will follow up for [facility] twice weekly. Follow up in the office tomorrow for her scheduled care. Dictated By: DAIN PADILLA/FCO Conf#: [id number] DID#: [id number]
== END 2018-09-21 19:20 | disposition home or self-care (01) | DRG 832 ==
LOC: L-D 17:16 → OBT 17:16 → L-D 22:55 → OBT 22:55 → L-D 09-16 03:18 → PP1 09-17 22:06
PROVIDERS: ADMIT Obstetrics & Gynecology; ATTEND Obstetrics & Gynecology
DX: O40.3XX0 Polyhydramnios, third trimester, not applicable or unspecified (principal); O47.03 False labor before 37 completed weeks of gestation, third trimester; O99.013 Anemia complicating pregnancy, third trimester; Z3A.35 35 weeks gestation of pregnancy
CPT/HCPCS: 71045; 76815; 76818; 80048; 80053; 81001; 82962; 83036; 83735; 84100; 84484; 85025; 85610; 85730; 86592; 86850; 86900; 86901; 87086; 87340; 93005; 93306; 96360; G0463; J0702; J1815; J7120

== ENCOUNTER 2018-09-26 10:09 | Outpatient (CLI) | payer MEDICAID ==
[~2018-09-26] VITALS: Ht 152.4 cm; Wt 102.5 kg
[2018-09-26 10:27] VITALS: Ht 152.4 cm; Wt 102.5 kg
--- NOTE | 2018-09-26 12:30 | TRIAGE ---
OB Triage Datetime Report Generated by CPN: 09/26/2018 12:29 Datetime: 09/26/2018 11:37 Maternal Assessment Level of Consciousness: Keenly Alert, Responsive DTR's/Clonus: DTRs 1+ Headache: Denies Blurred Vision: No Nausea/Vomiting: Denies RUQ Epigastric Pain: Denies Facial Edema: None Labor Evaluation Frequency: NONE Monitor Mode: External Resting Tone [place]: Relaxed Heart Rate FHR Baseline Rate: 135 Monitor Mode: External US Variability: Moderate 6-25 bpm Accelerations: 15X15 Decelerations: None Category: Category I Pain Assessment Pain Scale: 0 Pain Presence: None/Denies Pain Type: N/A Pain Goal: 3 Membrane Status: Intact Datetime: 09/26/2018 10:46 EGA: 36.3 Datetime: 09/26/2018 10:36 Maternal Assessment Level of Consciousness: Keenly Alert, Responsive DTR's/Clonus: DTRs 1+ Headache: Denies Blurred Vision: No Respiratory Effort: Unlabored Breath Sounds, Left: Clear and Equal Breath Sounds, Right: Clear and Equal Nausea/Vomiting: Denies RUQ Epigastric Pain: Denies Facial Edema: None Labor Evaluation Frequency: NONE Monitor Mode: External Resting Tone [place]: Relaxed Heart Rate FHR Baseline Rate: 140 Monitor Mode: External US Variability: Moderate 6-25 bpm Accelerations: 10X10 Decelerations: None Category: Category I Pain Assessment Pain Scale: 0 Pain Presence: None/Denies Pain Type: N/A Pain Goal: 3 Membrane Status: Intact Datetime: 09/26/2018 10:00 Time of Arrival: 09/26/2018 10:00 EGA: 36.3 Arrived By: Ambulatory Arrived From: Home Chief Complaint: NST AND BPP F/U FOR POLY AND GDM DIET CONTROL Movement: Present Contractions: Denies/Absent Rupture of Membranes: Denies Vaginal Discharge: Denies Recent Sexual Intercouse: Denies Abdominal Trauma: Not Applicable Additional Patient Complaints: NONE Time Provider Notified: 09/26/2018 10:00 Provider Notified: ESHAGIAN Initial Plan: MONITOR AND NST Datetime: 09/21/2018 17:28 Labor Evaluation Frequency: 0 Monitor Mode: External Resting Tone [place]: Relaxed Heart Rate FHR Baseline Rate: 130 Monitor Mode: External US FHR Baseline Changes: No Baseline Change Variability: Moderate 6-25 bpm Accelerations: 15X15 Decelerations: None Category: Category I Datetime: 09/21/2018 16:28 Labor Evaluation Frequency: 0 Monitor Mode: External Resting Tone [place]: Relaxed Heart Rate FHR Baseline Rate: 130 Monitor Mode: External US FHR Baseline Changes: No Baseline Change Variability: Moderate 6-25 bpm Accelerations: 15X15 Decelerations: None Category: Category I Datetime: 09/21/2018 15:42 Labor Evaluation Frequency: 0 Monitor Mode: External Resting Tone [place]: Relaxed Heart Rate FHR Baseline Rate: 120 Monitor Mode: External US FHR Baseline Changes: No Baseline Change Variability: Moderate 6-25 bpm Accelerations: 15X15 Decelerations: None Category: Category I Datetime: 09/21/2018 15:41 Bedside Blood Glucose: 116 Datetime: 09/21/2018 14:26 Labor Evaluation Frequency: 0 Monitor Mode: External Resting Tone [place]: Relaxed Heart Rate FHR Baseline Rate: 120 Monitor Mode: External US FHR Baseline Changes: No Baseline Change Variability: Moderate 6-25 bpm Accelerations: 15X15 Decelerations: None Category: Category I Datetime: 09/21/2018 14:21 Comments: monitors on Datetime: 09/21/2018 10:56 Bedside Blood Glucose: 102 Datetime: 09/21/2018 10:55 Labor Evaluation Frequency: 0 Monitor Mode: External Resting Tone [place]: Relaxed Heart Rate FHR Baseline Rate: 130 Monitor Mode: External US FHR Baseline Changes: No Baseline Change Variability: Moderate 6-25 bpm Accelerations: 15X15 Decelerations: None Category: Category I Datetime: 09/21/2018 09:56 Labor Evaluation Frequency: 0 Monitor Mode: External Resting Tone [place]: Relaxed Heart Rate FHR Baseline Rate: 130 Monitor Mode: External US FHR Baseline Changes: No Baseline Change Variability: Moderate 6-25 bpm Accelerations: 15X15 Decelerations: None Category: Category I Datetime: 09/21/2018 08:48 Bedside Blood Glucose: 81 Datetime: 09/21/2018 08:46 Assessment Type: Ongoing Assessment Maternal Assessment Level of Consciousness: Keenly Alert, Responsive DTR's/Clonus: DTRs 2+; No Clonus Headache: Denies Blurred Vision: No Respiratory Effort: Unlabored; Regular Rhythm; Equal Expansion Breath Sounds, Left: Clear and Equal Breath Sounds, Right: Clear and Equal Nausea/Vomiting: Denies RUQ Epigastric Pain: Denies Facial Edema: None Fall Risk Assessment History of Falling: (0) No Secondary Diagnosis: (0) No Ambulatory Aid: (0) Bedrest/Nurse Assist IV Therapy: (0) No Gait: (0) Normal/Bedrest/Immobile Mental Status: (0) Oriented to Own Ability Fall Score: 0 Fall Risk Score Definition: No Risk: No action required Datetime: 09/21/2018 08:39 Labor Evaluation Frequency: 0 Monitor Mode: External Resting Tone [place]: Relaxed Heart Rate FHR Baseline Rate: 130 Monitor Mode: External US FHR Baseline Changes: No Baseline Change Variability: Moderate 6-25 bpm Accelerations: 15X15 Decelerations: None Category: Category I Pain Presence: None/Denies Pain Assessment Comments: no vaginal bleeding Datetime: 09/21/2018 03:00 Labor Evaluation Frequency: 0 Monitor Mode: External Duration (sec)2399: 0 Pattern: Normal: <= 5 Contractions in 10 Minutes Resting Tone [place]: Relaxed Heart Rate FHR Baseline Rate: 140 Monitor Mode: External US FHR Baseline Changes: No Baseline Change Variability: Moderate 6-25 bpm Accelerations: 15X15 Decelerations: None Category: Category I Pain Assessment Pain Scale: 0 Pain Presence: None/Denies Pain Type: N/A Membrane Status: Intact Datetime: 09/21/2018 01:17 Stage of : Antepartum Breath Sounds, Left: Clear and Equal Breath Sounds, Right: Clear and Equal Labor Evaluation Frequency: 0 Monitor Mode: External Duration (sec)2399: 0 Pattern: Normal: <= 5 Contractions in 10 Minutes Resting Tone [place]: Relaxed Heart Rate FHR Baseline Rate: 135 Monitor Mode: External US FHR Baseline Changes: No Baseline Change Variability: Moderate 6-25 bpm Accelerations: 15X15 Decelerations: None Category: Category I Pain Assessment Pain Scale: 0 Pain Type: N/A Pain Goal: 0 Datetime: 09/21/2018 00:30 Stage of : Antepartum Monitor Mode: External Quality: Mild Pattern: Normal: <= 5 Contractions in 10 Minutes Resting Tone [place]: Relaxed Heart Rate FHR Baseline Rate: 135 Monitor Mode: External US FHR Baseline Changes: No Baseline Change Variability: Moderate 6-25 bpm Accelerations: 15X15 Decelerations: None Category: Category I Pain Assessment Pain Scale: 0 Pain Presence: None/Denies Pain Type: N/A Datetime: 09/20/2018 23:39 Stage of : Antepartum Headache: Denies Blurred Vision: No Respiratory Effort: Unlabored Breath Sounds, Left: Clear and Equal Breath Sounds, Right: Clear and Equal Labor Evaluation Frequency: 0 Monitor Mode: External Duration (sec)2399: 0 Pattern: Normal: <= 5 Contractions in 10 Minutes Resting Tone [place]: Relaxed Heart Rate FHR Baseline Rate: 140 Monitor Mode: External US FHR Baseline Changes: No Baseline Change Variability: Moderate 6-25 bpm Accelerations: 15X15 Decelerations: None Category: Category I Pain Assessment Pain Scale: 0 Pain Presence: None/Denies Pain Type: N/A Datetime: 09/20/2018 19:59 Stage of : Antepartum Maternal Assessment Level of Consciousness: Keenly Alert, Responsive DTR's/Clonus: DTRs 2+ Headache: Denies Blurred Vision: No Respiratory Effort: Unlabored Breath Sounds, Left: Clear and Equal Breath Sounds, Right: Clear and Equal Nausea/Vomiting: Denies RUQ Epigastric Pain: Denies Facial Edema: None Bedside Blood Glucose: 98 Labor Evaluation Frequency: 0 Monitor Mode: External Duration (sec)2399: 0 Pattern: Normal: <= 5 Contractions in 10 Minutes Resting Tone [place]: Relaxed Contraction Comments: PT STATES NO PRESSURE OR PAIN FELT Heart Rate FHR Baseline Rate: 135 Monitor Mode: External US FHR Baseline Changes: No Baseline Change Variability: Moderate 6-25 bpm Accelerations: 15X15 Decelerations: None Category: Category I Pain Assessment Pain Scale: 0 Pain Presence: None/Denies Pain Type: N/A Pain Assessment Comments: DAUGHTER AT BEDSIDE Membrane Status: Intact Datetime: 09/20/2018 16:54 Labor Evaluation Frequency: 0 Monitor Mode: External Resting Tone [place]: Relaxed Heart Rate FHR Baseline Rate: 130 Monitor Mode: External US FHR Baseline Changes: No Baseline Change Variability: Moderate 6-25 bpm Accelerations: 15X15 Decelerations: None Category: Category I Datetime: 09/20/2018 15:53 Labor Evaluation Frequency: 0 Monitor Mode: External Resting Tone [place]: Relaxed Heart Rate FHR Baseline Rate: 130 Monitor Mode: External US FHR Baseline Changes: No Baseline Change Variability: Moderate 6-25 bpm Accelerations: 15X15 Decelerations: None Category: Category I Datetime: 09/20/2018 15:32 Bedside Blood Glucose: 99 Datetime: 09/20/2018 14:57 Labor Evaluation Frequency: 0 Monitor Mode: External Resting Tone [place]: Relaxed Heart Rate FHR Baseline Rate: 130 Monitor Mode: External US FHR Baseline Changes: No Baseline Change Variability: Moderate 6-25 bpm Accelerations: 15X15 Decelerations: None Category: Category I Datetime: 09/20/2018 14:14 Labor Evaluation Frequency: 0 Monitor Mode: External Resting Tone [place]: Relaxed Heart Rate FHR Baseline Rate: 130 Monitor Mode: External US FHR Baseline Changes: No Baseline Change Variability: Moderate 6-25 bpm Accelerations: 15X15 Decelerations: None Category: Category I Datetime: 09/20/2018 13:03 Contraction Comments: monitors on after shower Datetime: 09/20/2018 10:47 Labor Evaluation Frequency: 0 Monitor Mode: External Resting Tone [place]: Relaxed Heart Rate FHR Baseline Rate: 140 Monitor Mode: External US FHR Baseline Changes: No Baseline Change Variability: Moderate 6-25 bpm Accelerations: 15X15 Decelerations: None Category: Category I Pain Assessment Pain Scale: 4 Pain Type: Cramping Pain Goal: 0 Pain Assessment Comments: lower back Datetime: 09/20/2018 10:45 Bedside Blood Glucose: 93 Datetime: 09/20/2018 08:55 Assessment Type: Ongoing Assessment Maternal Assessment Level of Consciousness: Fully Conscious DTR's/Clonus: DTRs 2+; No Clonus Headache: Denies Blurred Vision: No Respiratory Effort: Unlabored; Regular Rhythm; Equal Expansion Breath Sounds, Left: Clear and Equal Breath Sounds, Right: Clear and Equal Nausea/Vomiting: Denies RUQ Epigastric Pain: Denies Facial Edema: None Fall Risk Assessment History of Falling: (0) No Secondary Diagnosis: (0) No Ambulatory Aid: (0) Bedrest/Nurse Assist IV Therapy: (0) No Gait: (0) Normal/Bedrest/Immobile Mental Status: (0) Oriented to Own Ability Fall Score: 0 Fall Risk Score Definition: No Risk: No action required Datetime: 09/20/2018 08:50 Bedside Blood Glucose: 76 Pain Assessment Comments: lower abd cramping and lower back pain Datetime: 09/20/2018 08:25 Labor Evaluation Frequency: 0 Monitor Mode: External Resting Tone [place]: Relaxed Heart Rate FHR Baseline Rate: 130 Monitor Mode: External US FHR Baseline Changes: No Baseline Change Variability: Moderate 6-25 bpm Accelerations: 15X15 Decelerations: None Category: Category I Datetime: 09/20/2018 06:50 Pain Presence: None/Denies Pain Assessment Comments: PT DENIES FEELING ANY UC'S. Datetime: 09/20/2018 06:00 Labor Evaluation Frequency: IRREGULAR Monitor Mode: External Duration (sec)2399: 40-60 Quality: Mild Resting Tone [place]: Relaxed Heart Rate FHR Baseline Rate: 140 Monitor Mode: External US Variability: Moderate 6-25 bpm Accelerations: 15X15 Decelerations: None Category: Category I Datetime: 09/20/2018 05:50 Pain Assessment Pain Scale: 3 Pain Presence: Intermittent Pain Type: Contraction Pain Location: Back Pain Goal: 3 Pain Relief Measures: Comfort Measures Datetime: 09/20/2018 05:00 Labor Evaluation Frequency: 0 Monitor Mode: External Resting Tone [place]: Relaxed Heart Rate FHR Baseline Rate: 135 Monitor Mode: External US Variability: Moderate 6-25 bpm Accelerations: 15X15 Decelerations: None Category: Category I Pain Presence: None/Denies Datetime: 09/20/2018 04:00 Labor Evaluation Frequency: 0 Monitor Mode: External Duration (sec)2399: DENIES Resting Tone [place]: Relaxed Heart Rate FHR Baseline Rate: 140 Monitor Mode: External US Variability: Moderate 6-25 bpm Accelerations: 15X15 Decelerations: None Category: Category I Pain Presence: None/Denies Datetime: 09/20/2018 03:00 Labor Evaluation Frequency: 0 Monitor Mode: External Duration (sec)2399: denies Resting Tone [place]: Relaxed Heart Rate FHR Baseline Rate: 140 Monitor Mode: External US Variability: Moderate 6-25 bpm Accelerations: 15X15 Decelerations: None Category: Category I Pain Presence: None/Denies Datetime: 09/20/2018 02:00 Labor Evaluation Frequency: 0 Monitor Mode: External Duration (sec)2399: denies Resting Tone [place]: Relaxed Heart Rate FHR Baseline Rate: 135 Monitor Mode: External US Variability: Moderate 6-25 bpm Accelerations: 15X15 Decelerations: None Category: Category I Pain Presence: None/Denies Datetime: 09/20/2018 01:00 Labor Evaluation Frequency: 0 Monitor Mode: External Duration (sec)2399: denies Resting Tone [place]: Relaxed Heart Rate FHR Baseline Rate: 150 Monitor Mode: External US Variability: Moderate 6-25 bpm Accelerations: 15X15 Decelerations: None Category: Category I Datetime: 09/20/2018 00:00 Labor Evaluation Frequency: 0 Monitor Mode: External Duration (sec)2399: denies Resting Tone [place]: Relaxed Heart Rate FHR Baseline Rate: 155 Monitor Mode: External US Variability: Moderate 6-25 bpm Accelerations: Prolonged Decelerations: None Category: Category I Pain Presence: None/Denies Datetime: 09/19/2018 23:00 Labor Evaluation Frequency: 0 Monitor Mode: External Duration (sec)2399: denies Resting Tone [place]: Relaxed Heart Rate FHR Baseline Rate: 140 Monitor Mode: External US Variability: Moderate 6-25 bpm Accelerations: 15X15 Decelerations: None Category: Category I Pain Presence: None/Denies Datetime: 09/19/2018 22:00 Labor Evaluation Frequency: 0 Monitor Mode: External Resting Tone [place]: Relaxed Heart Rate FHR Baseline Rate: 140 Monitor Mode: External US Variability: Moderate 6-25 bpm Accelerations: 15X15 Decelerations: None Category: Category I Comments: loss of contact due to _ randell. Pain Presence: None/Denies Datetime: 09/19/2018 21:00 Labor Evaluation Frequency: 0 Monitor Mode: External Resting Tone [place]: Relaxed Heart Rate FHR Baseline Rate: 145 Monitor Mode: External US Variability: Moderate 6-25 bpm Accelerations: 15X15 Decelerations: None Category: Category I Pain Presence: None/Denies Datetime: 09/19/2018 20:00 Labor Evaluation Frequency: x1 Monitor Mode: External Duration (sec)2399: 50 Quality: Mild Resting Tone [place]: Relaxed Heart Rate FHR Baseline Rate: 145 Monitor Mode: External US Variability: Moderate 6-25 bpm Accelerations: 15X15 Decelerations: None Category: Category I Pain Presence: None/Denies Datetime: 09/19/2018 19:54 Stage of : Antepartum Assessment Type: Ongoing Assessment Maternal Assessment Level of Consciousness: Fully Conscious DTR's/Clonus: DTRs 2+; No Clonus Headache: Denies Blurred Vision: No Respiratory Effort: Unlabored; Regular Rhythm; Equal Expansion Breath Sounds, Left: Clear and Equal Breath Sounds, Right: Clear and Equal Nausea/Vomiting: Denies RUQ Epigastric Pain: Denies Lower Extremities Edema: None Degree: None Upper Extremities Edema: None Degree: None Facial Edema: None Temperature Route: Oral Fall Risk Assessment History of Falling: (0) No Secondary Diagnosis: (0) No Ambulatory Aid: (0) Bedrest/Nurse Assist IV Therapy: (0) No Gait: (0) Normal/Bedrest/Immobile Mental Status: (0) Oriented to Own Ability Fall Score: 0 Fall Risk Score Definition: No Risk: No action required Pain Presence: None/Denies Datetime: 09/19/2018 18:00 Stage of : Antepartum Maternal Assessment Level of Consciousness: Fully Conscious Headache: Denies Nausea/Vomiting: Denies RUQ Epigastric Pain: Denies Labor Evaluation Frequency: 0/hr Monitor Mode: External Heart Rate FHR Baseline Rate: 140 Monitor Mode: External US Variability: Moderate 6-25 bpm Accelerations: 15X15 Decelerations: None Pain Assessment Pain Scale: 0 Pain Presence: None/Denies Vaginal Bleeding: None Datetime: 09/19/2018 17:00 Stage of : Antepartum Maternal Assessment Level of Consciousness: Fully Conscious Headache: Denies Nausea/Vomiting: Denies RUQ Epigastric Pain: Denies Labor Evaluation Frequency: 0/hr Monitor Mode: External Heart Rate FHR Baseline Rate: 140 Monitor Mode: External US Variability: Moderate 6-25 bpm Accelerations: 10X10 Decelerations: None Pain Assessment Pain Scale: 0 Pain Presence: None/Denies Vaginal Bleeding: None Datetime: 09/19/2018 15:38 Monitor Mode: External Resting Tone [place]: Relaxed Monitor Mode: External US Pain Presence: None/Denies Datetime: 09/19/2018 15:08 Stage of : Antepartum Temperature Route: Oral Resting Tone [place]: Relaxed Pain Assessment Pain Scale: 1 Pain Presence: Constant Pain Relief Measures: Comfort Measures Pain Assessment Comments: pt. c/o lower ligament pain Vaginal Exam Dilatation (cms): 2.0 Effacement (%): 30 Station: -3 Exam By: vc Vaginal Bleeding: None Cervix, Consistency: Soft Cervix, Position: Posterior Presentation 'A': Cephalic Datetime: 09/19/2018 15:04 Bedside Blood Glucose: 90 Datetime: 09/19/2018 14:57 Labor Evaluation Frequency: 1/hr Monitor Mode: External Duration (sec)2399: 40 Quality: Mild Heart Rate FHR Baseline Rate: 145 Monitor Mode: External US Variability: Moderate 6-25 bpm Accelerations: 15X15 Decelerations: None Datetime: 09/19/2018 14:26 Monitor Mode: External Resting Tone [place]: Relaxed Monitor Mode: External US Datetime: 09/19/2018 13:47 Monitor Mode: External US Accelerations: 15X15 Datetime: 09/19/2018 13:00 Stage of : Antepartum Maternal Assessment Level of Consciousness: Fully Conscious Headache: Denies Nausea/Vomiting: Denies RUQ Epigastric Pain: Denies Labor Evaluation Frequency: 0/hr Monitor Mode: External Heart Rate FHR Baseline Rate: 150 Monitor Mode: External US Variability: Moderate 6-25 bpm Accelerations: 10X10 Decelerations: None Pain Assessment Pain Scale: 0 Pain Presence: None/Denies Vaginal Bleeding: None Datetime: 09/19/2018 12:33 Stage of : Antepartum Maternal Assessment Level of Consciousness: Fully Conscious Headache: Denies Nausea/Vomiting: Denies RUQ Epigastric Pain: Denies Labor Evaluation Frequency: 0/hr Monitor Mode: External Heart Rate FHR Baseline Rate: 150 Monitor Mode: External US Variability: Moderate 6-25 bpm Accelerations: 15X15 Decelerations: None Pain Assessment Pain Scale: 0 Pain Presence: None/Denies Vaginal Bleeding: None Datetime: 09/19/2018 11:55 Maternal Assessment Level of Consciousness: Fully Conscious Headache: Denies Blurred Vision: No Respiratory Effort: Unlabored Nausea/Vomiting: Denies RUQ Epigastric Pain: Denies Monitor Mode: External Resting Tone [place]: Relaxed Pain Presence: None/Denies Datetime: 09/19/2018 11:20 Stage of : Antepartum Maternal Assessment Level of Consciousness: Fully Conscious Headache: Denies Nausea/Vomiting: Denies RUQ Epigastric Pain: Denies Labor Evaluation Frequency: 0/hr Monitor Mode: External Heart Rate FHR Baseline Rate: 140 Monitor Mode: External US Variability: Moderate 6-25 bpm Accelerations: 10X10 Decelerations: None Comments: ega 35.3 Pain Assessment Pain Scale: 0 Pain Presence: None/Denies Membrane Status: Intact (Annotations: pt. denies lof, srom, or bleeding randell 13.8 today vs. 24 on 09/15/18) Vaginal Bleeding: None Datetime: 09/19/2018 10:39 Stage of : Antepartum Labor Evaluation Frequency: 0/hr Monitor Mode: External Heart Rate FHR Baseline Rate: 135 Monitor Mode: External US Variability: Moderate 6-25 bpm Accelerations: 15X15 Decelerations: None Datetime: 09/19/2018 10:20 Monitor Mode: External Contraction Comments: pt. denies uc's or cramping Monitor Mode: External US Pain Presence: None/Denies Datetime: 09/19/2018 09:29 Comments: pt. off monitor for breakfast. pt. denies distress at this time Pain Presence: None/Denies Datetime: 09/19/2018 09:19 Maternal Assessment Level of Consciousness: Fully Conscious Headache: Denies Blurred Vision: No Nausea/Vomiting: Denies RUQ Epigastric Pain: Denies Pain Presence: None/Denies Datetime: 09/19/2018 08:45 Labor Evaluation Frequency: 0/hr Monitor Mode: External Heart Rate FHR Baseline Rate: 135 Monitor Mode: External US Variability: Moderate 6-25 bpm Accelerations: 15X15 Decelerations: None Datetime: 09/19/2018 08:42 Stage of : Antepartum Maternal Assessment Level of Consciousness: Fully Conscious Headache: Denies Blurred Vision: No Respiratory Effort: Unlabored Nausea/Vomiting: Denies RUQ Epigastric Pain: Denies Pain Presence: None/Denies Datetime: 09/19/2018 08:00 Stage of : Antepartum Maternal Assessment Level of Consciousness: Fully Conscious Headache: Denies Blurred Vision: No Respiratory Effort: Unlabored Nausea/Vomiting: Denies RUQ Epigastric Pain: Denies Labor Evaluation Frequency: 0/hr Monitor Mode: External Resting Tone [place]: Relaxed Heart Rate FHR Baseline Rate: 140 Monitor Mode: External US Variability: Moderate 6-25 bpm Accelerations: 15X15 Decelerations: None Datetime: 09/19/2018 07:16 Stage of : Antepartum Assessment Type: Ongoing Assessment Maternal Assessment Level of Consciousness: Fully Conscious Headache: Denies Blurred Vision: No Nausea/Vomiting: Denies RUQ Epigastric Pain: Denies Temperature Route: Oral Bedside Blood Glucose: 86 Datetime: 09/19/2018 07:10 Stage of : Antepartum Monitor Mode: External Resting Tone [place]: Relaxed Datetime: 09/19/2018 07:00 Labor Evaluation Frequency: 0 Monitor Mode: External Heart Rate FHR Baseline Rate: 135 Monitor Mode: External US FHR Baseline Changes: No Baseline Change Variability: Moderate 6-25 bpm Accelerations: 15X15 Decelerations: None Category: Category I Datetime: 09/19/2018 06:00 Labor Evaluation Frequency: X1 Monitor Mode: External Duration (sec)2399: 80 Quality: Mild Heart Rate FHR Baseline Rate: 140 Monitor Mode: External US FHR Baseline Changes: No Baseline Change Variability: Moderate 6-25 bpm Accelerations: 15X15 Decelerations: None Category: Category I Datetime: 09/19/2018 05:00 Labor Evaluation Frequency: 0 Monitor Mode: External Heart Rate FHR Baseline Rate: 130 Monitor Mode: External US FHR Baseline Changes: No Baseline Change Variability: Moderate 6-25 bpm Accelerations: 15X15 Decelerations: None Category: Category I Datetime: 09/19/2018 04:00 Labor Evaluation Frequency: 0 Monitor Mode: External Heart Rate FHR Baseline Rate: 130 Monitor Mode: External US FHR Baseline Changes: No Baseline Change Variability: Moderate 6-25 bpm Accelerations: 15X15 Decelerations: None Category: Category I Datetime: 09/19/2018 03:55 Temperature Route: Oral Pain Assessment Pain Scale: 0 Datetime: 09/19/2018 03:00 Labor Evaluation Frequency: 0 Monitor Mode: External Heart Rate FHR Baseline Rate: 130 Monitor Mode: External US FHR Baseline Changes: No Baseline Change Variability: Moderate 6-25 bpm Accelerations: 15X15 Decelerations: None Category: Category I Datetime: 09/19/2018 02:00 Labor Evaluation Frequency: 0 Monitor Mode: External Heart Rate FHR Baseline Rate: 130 Monitor Mode: External US FHR Baseline Changes: No Baseline Change Variability: Moderate 6-25 bpm Accelerations: 15X15 Decelerations: None Category: Category I Datetime: 09/19/2018 01:00 Labor Evaluation Frequency: 0 Monitor Mode: External Heart Rate FHR Baseline Rate: 130 Monitor Mode: External US FHR Baseline Changes: No Baseline Change Variability: Moderate 6-25 bpm Accelerations: 15X15 Decelerations: None Category: Category I Datetime: 09/19/2018 00:00 Labor Evaluation Frequency: 0 Monitor Mode: External Heart Rate FHR Baseline Rate: 130 Monitor Mode: External US FHR Baseline Changes: No Baseline Change Variability: Moderate 6-25 bpm Accelerations: 15X15 Decelerations: None Category: Category I Datetime: 09/18/2018 23:41 Temperature Route: Oral Pain Assessment Pain Scale: 0 Datetime: 09/18/2018 23:00 Labor Evaluation Frequency: 0 Monitor Mode: External Heart Rate FHR Baseline Rate: 130 Monitor Mode: External US FHR Baseline Changes: No Baseline Change Variability: Moderate 6-25 bpm Accelerations: 15X15 Decelerations: None Category: Category I Datetime: 09/18/2018 22:00 Labor Evaluation Frequency: 0 Monitor Mode: External Heart Rate FHR Baseline Rate: 130 Monitor Mode: External US FHR Baseline Changes: No Baseline Change Variability: Moderate 6-25 bpm Accelerations: 15X15 Decelerations: None Category: Category I Datetime: 09/18/2018 21:00 Labor Evaluation Frequency: 0 Monitor Mode: External Heart Rate FHR Baseline Rate: 130 Monitor Mode: External US FHR Baseline Changes: No Baseline Change Variability: Moderate 6-25 bpm Accelerations: 15X15 Decelerations: None Category: Category I Datetime: 09/18/2018 20:04 Bedside Blood Glucose: 140 Datetime: 09/18/2018 20:00 Labor Evaluation Frequency: 0 Monitor Mode: External Contraction Comments: SKIN CHECK UNDER EFM PIECES WNL- NO REDNESS OR IRRITATION NOTED. Heart Rate FHR Baseline Rate: 130 Monitor Mode: External US FHR Baseline Changes: No Baseline Change Variability: Moderate 6-25 bpm Accelerations: 15X15 Decelerations: None Category: Category I Datetime: 09/18/2018 19:36 Temperature Route: Oral Pain Assessment Pain Scale: 0 Datetime: 09/18/2018 19:35 Assessment Type: Ongoing Assessment Maternal Assessment Level of Consciousness: Fully Conscious Headache: Denies Blurred Vision: No Respiratory Effort: Unlabored; Regular Rhythm; Equal Expansion Breath Sounds, Left: Clear and Equal Breath Sounds, Right: Clear and Equal Nausea/Vomiting: Denies RUQ Epigastric Pain: Denies Lower Extremities Edema: None Upper Extremities Edema: None Facial Edema: None Fall Risk Assessment History of Falling: (0) No Secondary Diagnosis: (0) No Ambulatory Aid: (0) Bedrest/Nurse Assist IV Therapy: (20) Yes Gait: (0) Normal/Bedrest/Immobile Mental Status: (0) Oriented to Own Ability Fall Score: 20 Fall Risk Score Definition: No Risk: No action required Datetime: 09/18/2018 18:55 Labor Evaluation Frequency: 0 Pattern: Normal: <= 5 Contractions in 10 Minutes Resting Tone [place]: Relaxed Heart Rate FHR Baseline Rate: 135 Monitor Mode: External US FHR Baseline Changes: No Baseline Change Variability: Moderate 6-25 bpm Accelerations: 15X15 Decelerations: None Category: Category I Datetime: 09/18/2018 17:37 Labor Evaluation Frequency: 0 Monitor Mode: External Pattern: Normal: <= 5 Contractions in 10 Minutes Resting Tone [place]: Relaxed Heart Rate FHR Baseline Rate: 135 Monitor Mode: External US FHR Baseline Changes: No Baseline Change Variability: Moderate 6-25 bpm Accelerations: 15X15 Decelerations: None Category: Category I Datetime: 09/18/2018 16:44 Labor Evaluation Frequency: 0 Monitor Mode: External Quality: Mild Pattern: Normal: <= 5 Contractions in 10 Minutes Resting Tone [place]: Relaxed Heart Rate FHR Baseline Rate: 130 FHR Baseline Changes: No Baseline Change Variability: Moderate 6-25 bpm Accelerations: 15X15 Decelerations: None Category: Category I Datetime: 09/18/2018 16:01 Maternal Assessment Level of Consciousness: Fully Conscious Headache: Denies Blurred Vision: No RUQ Epigastric Pain: Denies Facial Edema: None Pain Presence: None/Denies Datetime: 09/18/2018 16:00 Labor Evaluation Frequency: 0 Quality: Mild Pattern: Normal: <= 5 Contractions in 10 Minutes Resting Tone [place]: Relaxed Heart Rate FHR Baseline Rate: 135 Monitor Mode: External US FHR Baseline Changes: No Baseline Change Variability: Moderate 6-25 bpm Accelerations: 15X15 Decelerations: None Category: Category I Datetime: 09/18/2018 15:02 Labor Evaluation Frequency: 0 Quality: Mild Pattern: Normal: <= 5 Contractions in 10 Minutes Resting Tone [place]: Relaxed Heart Rate FHR Baseline Rate: 125 Monitor Mode: External US FHR Baseline Changes: No Baseline Change Variability: Moderate 6-25 bpm Accelerations: 15X15 Decelerations: None Category: Category I Datetime: 09/18/2018 14:00 Labor Evaluation Frequency: 0 Quality: Mild Pattern: Normal: <= 5 Contractions in 10 Minutes Resting Tone [place]: Relaxed Heart Rate FHR Baseline Rate: 130 Monitor Mode: External US FHR Baseline Changes: No Baseline Change Variability: Moderate 6-25 bpm Accelerations: 15X15 Decelerations: None Category: Category I Datetime: 09/18/2018 12:58 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 Datetime: 09/18/2018 12:08 Maternal Assessment Level of Consciousness: Fully Conscious Headache: Denies Blurred Vision: No Nausea/Vomiting: Denies RUQ Epigastric Pain: Denies Facial Edema: None Datetime: 09/18/2018 12:01 Labor Evaluation Frequency: 0 Monitor Mode: External Quality: Mild Pattern: Normal: <= 5 Contractions in 10 Minutes Resting Tone [place]: Relaxed Heart Rate FHR Baseline Rate: 135 Monitor Mode: External US FHR Baseline Changes: No Baseline Change Variability: Moderate 6-25 bpm Accelerations: 15X15 Decelerations: None Category: Category I Datetime: 09/18/2018 11:07 Comments: BACK ON MONITOR AFTER SHOWER Datetime: 09/18/2018 10:41 Labor Evaluation Frequency: 0 Monitor Mode: External Quality: Mild Pattern: Normal: <= 5 Contractions in 10 Minutes Resting Tone [place]: Relaxed Heart Rate FHR Baseline Rate: 125 Monitor Mode: External US FHR Baseline Changes: No Baseline Change Variability: Moderate 6-25 bpm Accelerations: 15X15 Decelerations: None Category: Category I Datetime: 09/18/2018 10:00 Labor Evaluation Frequency: 0 Pattern: Normal: <= 5 Contractions in 10 Minutes Resting Tone [place]: Relaxed Heart Rate FHR Baseline Rate: 125 FHR Baseline Changes: No Baseline Change Variability: Moderate 6-25 bpm Accelerations: 15X15 Decelerations: None Category: Category I Datetime: 09/18/2018 08:57 Labor Evaluation Frequency: 0 Monitor Mode: External Pattern: Normal: <= 5 Contractions in 10 Minutes Resting Tone [place]: Relaxed Heart Rate FHR Baseline Rate: 125 Monitor Mode: External US FHR Baseline Changes: No Baseline Change Variability: Moderate 6-25 bpm Accelerations: 15X15 Decelerations: None Category: Category I Datetime: 09/18/2018 07:59 Labor Evaluation Frequency: 0 Monitor Mode: External Pattern: Normal: <= 5 Contractions in 10 Minutes Resting Tone [place]: Relaxed Heart Rate FHR Baseline Rate: 125 Monitor Mode: External US FHR Baseline Changes: No Baseline Change Variability: Moderate 6-25 bpm Accelerations: 15X15 Decelerations: None Category: Category I Datetime: 09/18/2018 07:49 Stage of : Antepartum Temperature Route: Oral Pain Goal: 0 Datetime: 09/18/2018 07:45 Assessment Type: Ongoing Assessment Maternal Assessment Level of Consciousness: Fully Conscious DTR's/Clonus: DTRs 2+; No Clonus Headache: Denies Blurred Vision: No Respiratory Effort: Unlabored; Regular Rhythm; Equal Expansion Breath Sounds, Left: Clear and Equal Breath Sounds, Right: Clear and Equal Nausea/Vomiting: Denies RUQ Epigastric Pain: Denies Facial Edema: None Fall Risk Assessment History of Falling: (0) No Secondary Diagnosis: (0) No Ambulatory Aid: (0) Bedrest/Nurse Assist IV Therapy: (0) No Gait: (0) Normal/Bedrest/Immobile Mental Status: (0) Oriented to Own Ability Fall Score: 0 Fall Risk Score Definition: No Risk: No action required Datetime: 09/18/2018 07:00 Labor Evaluation Frequency: 0 Monitor Mode: External Heart Rate FHR Baseline Rate: 125 Monitor Mode: External US FHR Baseline Changes: No Baseline Change Variability: Moderate 6-25 bpm Accelerations: 15X15 Decelerations: None Category: Category I Datetime: 09/18/2018 06:00 Labor Evaluation Frequency: 0 Monitor Mode: External Heart Rate FHR Baseline Rate: 125 Monitor Mode: External US FHR Baseline Changes: No Baseline Change Variability: Moderate 6-25 bpm Accelerations: 15X15 Decelerations: None Category: Category I Datetime: 09/18/2018 05:00 Labor Evaluation Frequency: 0 Monitor Mode: External Heart Rate FHR Baseline Rate: 125 Monitor Mode: External US FHR Baseline Changes: No Baseline Change Variability: Moderate 6-25 bpm Accelerations: 15X15 Decelerations: None Category: Category I Datetime: 09/18/2018 04:36 Maternal Assessment Level of Consciousness: Fully Conscious Temperature Route: Oral Pain Assessment Pain Scale: 0 Datetime: 09/18/2018 04:00 Labor Evaluation Frequency: 0 Monitor Mode: External Heart Rate FHR Baseline Rate: 125 Monitor Mode: External US FHR Baseline Changes: No Baseline Change Variability: Moderate 6-25 bpm Accelerations: 15X15 Decelerations: None Category: Category I Datetime: 09/18/2018 03:00 Labor Evaluation Frequency: 0 Monitor Mode: External Heart Rate FHR Baseline Rate: 125 Monitor Mode: External US FHR Baseline Changes: No Baseline Change Variability: Moderate 6-25 bpm Accelerations: 15X15 Decelerations: None Category: Category I Datetime: 09/18/2018 02:00 Labor Evaluation Frequency: 0 Monitor Mode: External Heart Rate FHR Baseline Rate: 125 Monitor Mode: External US FHR Baseline Changes: No Baseline Change Variability: Moderate 6-25 bpm Accelerations: 15X15 Decelerations: None Category: Category I Datetime: 09/18/2018 01:00 Labor Evaluation Frequency: X1 Monitor Mode: External Duration (sec)2399: 40 Quality: Mild Heart Rate FHR Baseline Rate: 125 Monitor Mode: External US FHR Baseline Changes: No Baseline Change Variability: Moderate 6-25 bpm Accelerations: Prolonged Decelerations: None Category: Category I Datetime: 09/18/2018 00:00 Labor Evaluation Frequency: 0 Monitor Mode: External Heart Rate FHR Baseline Rate: 140 Monitor Mode: External US FHR Baseline Changes: No Baseline Change Variability: Moderate 6-25 bpm Accelerations: Prolonged Decelerations: None Category: Category I Datetime: 09/17/2018 23:00 Labor Evaluation Frequency: 0 Monitor Mode: External Heart Rate FHR Baseline Rate: 135 Monitor Mode: External US FHR Baseline Changes: No Baseline Change Variability: Moderate 6-25 bpm Accelerations: Prolonged Decelerations: None Category: Category I Datetime: 09/17/2018 22:07 Temperature Route: Oral Pain Assessment Pain Scale: 0 Datetime: 09/17/2018 22:05 Stage of : Antepartum Labor Evaluation Frequency: 0 Monitor Mode: External Heart Rate FHR Baseline Rate: 135 Monitor Mode: External US FHR Baseline Changes: No Baseline Change Variability: Moderate 6-25 bpm Accelerations: 15X15 Decelerations: None Category: Category I Datetime: 09/17/2018 21:50 Stage of : Antepartum Datetime: 09/17/2018 21:00 Stage of : Antepartum Labor Evaluation Frequency: None Monitor Mode: External Resting Tone [place]: Relaxed Heart Rate FHR Baseline Rate: 120 Monitor Mode: External US FHR Baseline Changes: No Baseline Change Variability: Moderate 6-25 bpm Accelerations: 15X15 Decelerations: None Category: Category I Datetime: 09/17/2018 20:08 Bedside Blood Glucose: 153 Datetime: 09/17/2018 20:00 Stage of : Antepartum Labor Evaluation Frequency: None Monitor Mode: External Resting Tone [place]: Relaxed Heart Rate FHR Baseline Rate: 125 Monitor Mode: External US FHR Baseline Changes: No Baseline Change Variability: Moderate 6-25 bpm Accelerations: 15X15 Decelerations: None Category: Category I Datetime: 09/17/2018 19:59 Monitor Mode: External US Datetime: 09/17/2018 19:56 Assessment Type: Ongoing Assessment Maternal Assessment Level of Consciousness: Fully Conscious DTR's/Clonus: DTRs 2+; No Clonus Headache: Denies Blurred Vision: No Respiratory Effort: Unlabored; Regular Rhythm; Equal Expansion Breath Sounds, Left: Clear and Equal Breath Sounds, Right: Clear and Equal Nausea/Vomiting: Denies RUQ Epigastric Pain: Denies Lower Extremities Edema: None Degree: None Upper Extremities Edema: None Degree: None Facial Edema: None Fall Risk Assessment History of Falling: (0) No Secondary Diagnosis: (0) No Ambulatory Aid: (0) Bedrest/Nurse Assist IV Therapy: (0) No Gait: (0) Normal/Bedrest/Immobile Mental Status: (0) Oriented to Own Ability Fall Score: 0 Fall Risk Score Definition: No Risk: No action required Monitor Mode: External US Datetime: 09/17/2018 19:51 Monitor Mode: External US Datetime: 09/17/2018 19:14 Maternal Assessment Level of Consciousness: Fully Conscious DTR's/Clonus: DTRs 2+ Headache: Denies Blurred Vision: No Nausea/Vomiting: Denies RUQ Epigastric Pain: Denies Facial Edema: None Labor Evaluation Frequency: NONE Monitor Mode: External Pattern: Normal: <= 5 Contractions in 10 Minutes Resting Tone [place]: Relaxed Heart Rate FHR Baseline Rate: 130 Monitor Mode: External US FHR Baseline Changes: No Baseline Change Variability: Moderate 6-25 bpm Accelerations: 15X15 Decelerations: None Category: Category I Pain Assessment Pain Scale: 4 Pain Presence: Constant Pain Type: Dull Pain Goal: 0 Membrane Status: Intact Datetime: 09/17/2018 18:07 Labor Evaluation Frequency: NONE Monitor Mode: External Pattern: Normal: <= 5 Contractions in 10 Minutes Resting Tone [place]: Relaxed Heart Rate FHR Baseline Rate: 130 Monitor Mode: External US FHR Baseline Changes: No Baseline Change Variability: Moderate 6-25 bpm Accelerations: 15X15 Decelerations: None Category: Category I Pain Assessment Pain Scale: 3 Pain Presence: Constant Pain Type: Dull Pain Goal: 0 Pain Assessment Comments: CHEST PAIN Datetime: 09/17/2018 15:41 Maternal Assessment Level of Consciousness: Fully Conscious DTR's/Clonus: DTRs 2+ Headache: Denies Blurred Vision: No Nausea/Vomiting: Denies RUQ Epigastric Pain: Denies Facial Edema: None Labor Evaluation Frequency: NONE Monitor Mode: External Pattern: Normal: <= 5 Contractions in 10 Minutes Resting Tone [place]: Relaxed Heart Rate FHR Baseline Rate: 130 Monitor Mode: External US FHR Baseline Changes: No Baseline Change Variability: Moderate 6-25 bpm Accelerations: 15X15 Decelerations: None Category: Category I Pain Assessment Pain Scale: 3 Pain Presence: Constant Pain Type: Dull Pain Goal: 0 Pain Assessment Comments: PAIN IN CHEST AREA NOT ABD Membrane Status: Intact Datetime: 09/17/2018 11:58 Maternal Assessment Level of Consciousness: Fully Conscious DTR's/Clonus: DTRs 2+ Headache: Denies Blurred Vision: No Nausea/Vomiting: Denies RUQ Epigastric Pain: Denies Facial Edema: None Labor Evaluation Frequency: NONE Pattern: Normal: <= 5 Contractions in 10 Minutes Resting Tone [place]: Relaxed Heart Rate FHR Baseline Rate: 125 Monitor Mode: External US FHR Baseline Changes: No Baseline Change Variability: Moderate 6-25 bpm Accelerations: 15X15 Decelerations: None Category: Category I Pain Assessment Pain Scale: 4 Pain Presence: Constant Pain Type: Dull Pain Goal: 0 Pain Assessment Comments: CHEST PAIN NO ABD PAIN Membrane Status: Intact Datetime: 09/17/2018 10:54 Maternal Assessment Level of Consciousness: Fully Conscious DTR's/Clonus: DTRs 2+ Headache: Denies Blurred Vision: No Nausea/Vomiting: Denies RUQ Epigastric Pain: Denies Facial Edema: None Labor Evaluation Frequency: NONE Pattern: Normal: <= 5 Contractions in 10 Minutes Resting Tone [place]: Relaxed Heart Rate FHR Baseline Rate: 135 Monitor Mode: External US FHR Baseline Changes: No Baseline Change Variability: Moderate 6-25 bpm Accelerations: 15X15 Decelerations: None Category: Category I Pain Assessment Pain Scale: 5 Pain Presence: Constant Pain Type: Dull Pain Goal: 0 Pain Assessment Comments: NO ABD PAIN STATES DULL PAIN IN CHEST Membrane Status: Intact Datetime: 09/17/2018 10:00 Maternal Assessment Level of Consciousness: Fully Conscious DTR's/Clonus: DTRs 2+ Headache: Denies Blurred Vision: No Nausea/Vomiting: Denies RUQ Epigastric Pain: Denies Facial Edema: None Labor Evaluation Frequency: NONE Monitor Mode: External Pattern: Normal: <= 5 Contractions in 10 Minutes Resting Tone [place]: Relaxed Heart Rate FHR Baseline Rate: 135 Monitor Mode: External US FHR Baseline Changes: No Baseline Change Variability: Moderate 6-25 bpm Accelerations: 15X15 Decelerations: None Category: Category I Pain Assessment Pain Scale: 6 Pain Presence: Constant Pain Type: Dull Pain Goal: 0 Pain Assessment Comments: DULL PAIN IN CHEST SINCE YESTERDAY NO ABD PAIN Membrane Status: Intact Datetime: 09/17/2018 09:40 Bedside Blood Glucose: 142 Datetime: 09/17/2018 09:08 Pain Assessment Pain Scale: 6 Pain Presence: Constant Pain Type: Dull Pain Goal: 0 Pain Assessment Comments: dull pain in chest Datetime: 09/17/2018 07:36 Headache: Denies Blurred Vision: No RUQ Epigastric Pain: Denies Facial Edema: None Bedside Blood Glucose: 108 Labor Evaluation Frequency: NONE AT THIS TIME Monitor Mode: External Quality: Mild Pattern: Normal: <= 5 Contractions in 10 Minutes Resting Tone [place]: Relaxed Heart Rate FHR Baseline Rate: 120 Monitor Mode: External US FHR Baseline Changes: No Baseline Change Variability: Moderate 6-25 bpm Accelerations: 15X15 Decelerations: None Category: Category I Membrane Status: Intact Datetime: 09/17/2018 07:30 Maternal Assessment Level of Consciousness: Fully Conscious DTR's/Clonus: DTRs 2+; No Clonus Headache: Denies Blurred Vision: No Respiratory Effort: Unlabored; Regular Rhythm; Equal Expansion Breath Sounds, Left: Clear and Equal Breath Sounds, Right: Clear and Equal Nausea/Vomiting: Denies RUQ Epigastric Pain: Denies Facial Edema: None Fall Risk Assessment History of Falling: (0) No Secondary Diagnosis: (0) No Ambulatory Aid: (0) Bedrest/Nurse Assist IV Therapy: (0) No Gait: (0) Normal/Bedrest/Immobile Mental Status: (0) Oriented to Own Ability Fall Score: 0 Fall Risk Score Definition: No Risk: No action required Datetime: 09/17/2018 07:00 Stage of : Antepartum Labor Evaluation Frequency: None Monitor Mode: External Quality: Mild Pattern: Normal: <= 5 Contractions in 10 Minutes Resting Tone [place]: Relaxed Heart Rate FHR Baseline Rate: 120 Monitor Mode: External US FHR Baseline Changes: No Baseline Change Variability: Moderate 6-25 bpm Accelerations: 15X15 Decelerations: None Category: Category I Datetime: 09/17/2018 06:15 Pain Assessment Pain Scale: 6 Pain Presence: Constant Pain Type: Dull Pain Goal: 0 Pain Assessment Comments: dull pain in chest pt states it feels like pain she had when she had br onchitis 1 month ago Datetime: 09/17/2018 06:00 Stage of : Antepartum Labor Evaluation Frequency: None Monitor Mode: External Quality: Mild Pattern: Normal: <= 5 Contractions in 10 Minutes Resting Tone [place]: Relaxed Heart Rate FHR Baseline Rate: 120 Monitor Mode: External US FHR Baseline Changes: No Baseline Change Variability: Moderate 6-25 bpm Accelerations: 15X15 Decelerations: None Category: Category I Datetime: 09/17/2018 05:00 Stage of : Antepartum Labor Evaluation Frequency: None Monitor Mode: External Quality: Mild Pattern: Normal: <= 5 Contractions in 10 Minutes Resting Tone [place]: Relaxed Heart Rate FHR Baseline Rate: 130 Monitor Mode: External US FHR Baseline Changes: No Baseline Change Variability: Moderate 6-25 bpm Accelerations: 15X15 Decelerations: None Category: Category I Datetime: 09/17/2018 04:00 Stage of : Antepartum Labor Evaluation Frequency: None Monitor Mode: External Quality: Mild Pattern: Normal: <= 5 Contractions in 10 Minutes Resting Tone [place]: Relaxed Heart Rate FHR Baseline Rate: 125 Monitor Mode: External US FHR Baseline Changes: No Baseline Change Variability: Moderate 6-25 bpm Accelerations: 15X15 Decelerations: None Category: Category I Datetime: 09/17/2018 03:06 Monitor Mode: External US Datetime: 09/17/2018 03:00 Stage of : Antepartum Labor Evaluation Frequency: None Monitor Mode: External Quality: Mild Pattern: Normal: <= 5 Contractions in 10 Minutes Resting Tone [place]: Relaxed Heart Rate FHR Baseline Rate: 120 Monitor Mode: External US FHR Baseline Changes: No Baseline Change Variability: Moderate 6-25 bpm Accelerations: 15X15 Decelerations: None Category: Category I Datetime: 09/17/2018 02:00 Stage of : Antepartum Labor Evaluation Frequency: None Monitor Mode: External Quality: Mild Pattern: Normal: <= 5 Contractions in 10 Minutes Resting Tone [place]: Relaxed Heart Rate FHR Baseline Rate: 125 Monitor Mode: External US FHR Baseline Changes: No Baseline Change Variability: Moderate 6-25 bpm Accelerations: 15X15 Decelerations: None Category: Category I Datetime: 09/17/2018 01:26 Monitor Mode: External US Datetime: 09/17/2018 01:00 Stage of : Antepartum Labor Evaluation Frequency: None Monitor Mode: External Quality: Mild Pattern: Normal: <= 5 Contractions in 10 Minutes Resting Tone [place]: Relaxed Heart Rate FHR Baseline Rate: 125 Monitor Mode: External US FHR Baseline Changes: No Baseline Change Variability: Moderate 6-25 bpm Accelerations: 15X15 Decelerations: None Category: Category I Datetime: 09/17/2018 00:00 Stage of : Antepartum Labor Evaluation Frequency: X1 Monitor Mode: External Duration (sec)2399: 70 Quality: Mild Heart Rate FHR Baseline Rate: 130 Monitor Mode: External US FHR Baseline Changes: No Baseline Change Variability: Moderate 6-25 bpm Accelerations: 15X15 Decelerations: None Category: Category I Datetime: 09/16/2018 23:39 Monitor Mode: External US Datetime: 09/16/2018 23:00 Stage of : Antepartum Labor Evaluation Frequency: None Monitor Mode: External Heart Rate FHR Baseline Rate: 135 Monitor Mode: External US FHR Baseline Changes: No Baseline Change Variability: Moderate 6-25 bpm Accelerations: 15X15 Decelerations: None Category: Category I Datetime: 09/16/2018 22:00 Stage of : Antepartum Labor Evaluation Frequency: None Monitor Mode: External Heart Rate FHR Baseline Rate: 135 Monitor Mode: External US FHR Baseline Changes: No Baseline Change Variability: Moderate 6-25 bpm Accelerations: 15X15 Decelerations: None Category: Category I Datetime: 09/16/2018 21:00 Stage of : Antepartum Labor Evaluation Frequency: None Monitor Mode: External Heart Rate FHR Baseline Rate: 125 Monitor Mode: External US FHR Baseline Changes: No Baseline Change Variability: Moderate 6-25 bpm Accelerations: 15X15 Decelerations: None Category: Category I Datetime: 09/16/2018 20:36 Pain Assessment Pain Scale: 4 Pain Presence: Constant Pain Type: Dull; Pressure Pain Goal: 0 Pain Assessment Comments: Chest. Pt states "it feels like it did when I had bronchitis." Datetime: 09/16/2018 20:02 Bedside Blood Glucose: 184 Datetime: 09/16/2018 20:00 Stage of : Antepartum Labor Evaluation Frequency: None Monitor Mode: External Heart Rate FHR Baseline Rate: 125 Monitor Mode: External US FHR Baseline Changes: No Baseline Change Variability: Moderate 6-25 bpm Accelerations: 15X15 Decelerations: None Category: Category I Datetime: 09/16/2018 19:40 Assessment Type: Ongoing Assessment Maternal Assessment Level of Consciousness: Fully Conscious DTR's/Clonus: DTRs 2+; No Clonus Headache: Denies Blurred Vision: No Respiratory Effort: Unlabored; Regular Rhythm; Equal Expansion Breath Sounds, Left: Clear and Equal Breath Sounds, Right: Clear and Equal Nausea/Vomiting: Denies RUQ Epigastric Pain: Denies Lower Extremities Edema: None Degree: None Upper Extremities Edema: None Degree: None Facial Edema: None Fall Risk Assessment History of Falling: (0) No Secondary Diagnosis: (0) No Ambulatory Aid: (0) Bedrest/Nurse Assist IV Therapy: (0) No Gait: (0) Normal/Bedrest/Immobile Mental Status: (0) Oriented to Own Ability Fall Score: 0 Fall Risk Score Definition: No Risk: No action required Datetime: 09/16/2018 17:52 Labor Evaluation Frequency: 0 Monitor Mode: External Resting Tone [place]: Relaxed Heart Rate FHR Baseline Rate: 140 Monitor Mode: External US FHR Baseline Changes: No Baseline Change Variability: Moderate 6-25 bpm Accelerations: 15X15 Decelerations: None Category: Category I Datetime: 09/16/2018 17:38 Labor Evaluation Frequency: 0 Monitor Mode: External Resting Tone [place]: Relaxed Heart Rate FHR Baseline Rate: 140 Monitor Mode: External US FHR Baseline Changes: No Baseline Change Variability: Moderate 6-25 bpm Accelerations: 15X15 Decelerations: None Category: Category I Datetime: 09/16/2018 17:37 Pain Assessment Pain Scale: 2 Pain Assessment Comments: pt states she has less cramping on procardia Datetime: 09/16/2018 16:47 Labor Evaluation Frequency: 0 Monitor Mode: External Resting Tone [place]: Relaxed Heart Rate FHR Baseline Rate: 140 Monitor Mode: External US FHR Baseline Changes: No Baseline Change Variability: Moderate 6-25 bpm Accelerations: 15X15 Decelerations: None Category: Category I Datetime: 09/16/2018 15:41 Comments: very difficult to monitor, due to pts obesity and movement and increased fluid. Datetime: 09/16/2018 15:21 Labor Evaluation Frequency: 0 Monitor Mode: External Resting Tone [place]: Relaxed Contraction Comments: pt states that she has cramping in lower abd and lower back pain Heart Rate FHR Baseline Rate: 130 Monitor Mode: External US FHR Baseline Changes: No Baseline Change Variability: Moderate 6-25 bpm Accelerations: 15X15 Decelerations: None Category: Category I Datetime: 09/16/2018 12:41 Labor Evaluation Frequency: 0 Monitor Mode: External Resting Tone [place]: Relaxed Heart Rate FHR Baseline Rate: 140 Monitor Mode: External US FHR Baseline Changes: No Baseline Change Variability: Moderate 6-25 bpm Accelerations: 15X15 Decelerations: None Category: Category I Datetime: 09/16/2018 12:35 Vaginal Exam Dilatation (cms): 2.0 Station: -4 Exam By: dg rn Vaginal Bleeding: Normal Show Cervix, Consistency: Soft Cervix, Position: Posterior Datetime: 09/16/2018 11:30 Bedside Blood Glucose: 84 Datetime: 09/16/2018 10:44 Labor Evaluation Frequency: 0 Monitor Mode: External Resting Tone [place]: Relaxed Heart Rate FHR Baseline Rate: 130 Monitor Mode: External US FHR Baseline Changes: No Baseline Change Variability: Moderate 6-25 bpm Accelerations: 15X15 Decelerations: None Category: Category I Datetime: 09/16/2018 09:48 Labor Evaluation Frequency: 0 Monitor Mode: External Resting Tone [place]: Relaxed Heart Rate FHR Baseline Rate: 130 Monitor Mode: External US FHR Baseline Changes: No Baseline Change Variability: Moderate 6-25 bpm Accelerations: 15X15 Decelerations: None Category: Category I Datetime: 09/16/2018 09:38 Pain Assessment Comments: c/o cramping and having lower back pain Datetime: 09/16/2018 09:37 Pain Type: Cramping Datetime: 09/16/2018 08:42 Assessment Type: Ongoing Assessment Maternal Assessment Level of Consciousness: Fully Conscious DTR's/Clonus: DTRs 2+; No Clonus Headache: Denies Blurred Vision: No Respiratory Effort: Unlabored; Regular Rhythm; Equal Expansion Breath Sounds, Left: Clear and Equal Breath Sounds, Right: Clear and Equal Nausea/Vomiting: Denies RUQ Epigastric Pain: Denies Facial Edema: None Fall Risk Assessment History of Falling: (0) No Secondary Diagnosis: (0) No Ambulatory Aid: (0) Bedrest/Nurse Assist IV Therapy: (20) Yes Gait: (0) Normal/Bedrest/Immobile Mental Status: (0) Oriented to Own Ability Fall Score: 20 Fall Risk Score Definition: No Risk: No action required Datetime: 09/16/2018 08:29 Bedside Blood Glucose: 65 Pain Assessment Pain Scale: 3 Pain Type: Contraction Pain Assessment Comments: occasionally Datetime: 09/16/2018 08:27 Labor Evaluation Frequency: 0 Monitor Mode: External Resting Tone [place]: Relaxed Heart Rate FHR Baseline Rate: 130 Monitor Mode: External US FHR Baseline Changes: No Baseline Change Variability: Moderate 6-25 bpm Accelerations: 15X15 Decelerations: None Category: Category I Datetime: 09/16/2018 06:15 Stage of : Antepartum Labor Evaluation Frequency: 10-15 Monitor Mode: External Duration (sec)2399: 20 Quality: Mild Pattern: Normal: <= 5 Contractions in 10 Minutes Resting Tone [place]: Relaxed Heart Rate FHR Baseline Rate: 135 Monitor Mode: External US FHR Baseline Changes: No Baseline Change Variability: Moderate 6-25 bpm Accelerations: 15X15 Decelerations: None Category: Category I Pain Assessment Pain Scale: 0 Pain Presence: None/Denies Pain Type: N/A Membrane Status: Intact Datetime: 09/16/2018 04:29 Stage of : Antepartum Labor Evaluation Frequency: 0 Monitor Mode: External Duration (sec)2399: 0 Pattern: Normal: <= 5 Contractions in 10 Minutes Resting Tone [place]: Relaxed Heart Rate FHR Baseline Rate: 130 Monitor Mode: External US FHR Baseline Changes: No Baseline Change Variability: Moderate 6-25 bpm Accelerations: 15X15 Decelerations: None Category: Category I Pain Presence: None/Denies Pain Type: N/A Membrane Status: Intact Datetime: 09/16/2018 03:57 Time of Arrival: 09/15/2018 22:55 EGA: 34.6 Arrived By: Wheelchair Arrived From: Home Datetime: 09/16/2018 03:36 Stage of : Antepartum Maternal Assessment Level of Consciousness: Fully Conscious DTR's/Clonus: DTRs 2+ Headache: Denies Blurred Vision: No Respiratory Effort: Unlabored Breath Sounds, Left: Clear and Equal Breath Sounds, Right: Clear and Equal Nausea/Vomiting: Denies RUQ Epigastric Pain: Denies Labor Evaluation Frequency: x1 Monitor Mode: External Duration (sec)2399: 25 Quality: Mild Pattern: Normal: <= 5 Contractions in 10 Minutes Resting Tone [place]: Relaxed Heart Rate FHR Baseline Rate: 130 Monitor Mode: External US FHR Baseline Changes: No Baseline Change Variability: Moderate 6-25 bpm Accelerations: 10X10 Decelerations: None Category: Category I Pain Assessment Pain Scale: 0 Pain Presence: None/Denies Pain Type: N/A Pain Assessment Comments: DAUGHTER OG PT AT BEDSIDE Membrane Status: Intact Datetime: 09/16/2018 03:00 Labor Evaluation Frequency: x1 Monitor Mode: External Duration (sec)2399: 50 Quality: Mild Pattern: Normal: <= 5 Contractions in 10 Minutes Resting Tone [place]: Relaxed Heart Rate FHR Baseline Rate: 130 Monitor Mode: External US Variability: Moderate 6-25 bpm Accelerations: 10X10 Decelerations: None Category: Category I Datetime: 09/16/2018 02:00 Labor Evaluation Frequency: NONE Monitor Mode: External Resting Tone [place]: Relaxed Heart Rate FHR Baseline Rate: 125 Monitor Mode: External US Variability: Moderate 6-25 bpm Accelerations: 15X15 Decelerations: None Category: Category I Datetime: 09/16/2018 01:56 Pain Assessment Pain Scale: 3 Pain Presence: Intermittent Pain Type: Cramping Pain Location: Abdomen Datetime: 09/16/2018 01:00 Labor Evaluation Frequency: Irregular Monitor Mode: External Resting Tone [place]: Relaxed Heart Rate FHR Baseline Rate: 135 Monitor Mode: External US Variability: Moderate 6-25 bpm Accelerations: Prolonged Decelerations: None Category: Category I Datetime: 09/16/2018 00:00 Labor Evaluation Frequency: 2-5 Monitor Mode: External Duration (sec)2399: 50-90 Quality: Mild Pattern: Normal: <= 5 Contractions in 10 Minutes Resting Tone [place]: Relaxed Heart Rate FHR Baseline Rate: 135 Monitor Mode: External US Variability: Moderate 6-25 bpm Accelerations: Prolonged Decelerations: None Category: Category I Pain Assessment Pain Scale: 5 Pain Presence: Intermittent Pain Type: Cramping Pain Location: Abdomen Datetime: 09/15/2018 23:00 Labor Evaluation Frequency: 2-6 Monitor Mode: External Duration (sec)2399: 50-90 Quality: Mild Pattern: Normal: <= 5 Contractions in 10 Minutes Resting Tone [place]: Relaxed Heart Rate FHR Baseline Rate: 135 Monitor Mode: External US Variability: Moderate 6-25 bpm Accelerations: 15X15 Decelerations: None Category: Category I Datetime: 09/15/2018 22:51 Vaginal Exam Dilatation (cms): 2.5 Effacement (%): 60 Station: -4 Exam By: M. Tungate RN Datetime: 09/15/2018 22:32 Pain Assessment Pain Scale: 6 Pain Presence: Intermittent Pain Type: Cramping Pain Location: Abdomen Datetime: 09/15/2018 22:00 Labor Evaluation Frequency: 1.5-6 Monitor Mode: External Duration (sec)2399: 50-90 Quality: Mild Pattern: Normal: <= 5 Contractions in 10 Minutes Resting Tone [place]: Relaxed Heart Rate FHR Baseline Rate: 135 Monitor Mode: External US Variability: Moderate 6-25 bpm Accelerations: 15X15 Decelerations: None Category: Category I Datetime: 09/15/2018 21:00 Labor Evaluation Frequency: 1.5-2.5 Monitor Mode: External Duration (sec)2399: 50-100 Quality: Mild Pattern: Normal: <= 5 Contractions in 10 Minutes Resting Tone [place]: Relaxed Heart Rate FHR Baseline Rate: 135 Monitor Mode: External US Variability: Moderate 6-25 bpm Accelerations: 15X15 Decelerations: None Category: Category I Datetime: 09/15/2018 20:36 Vaginal Exam Dilatation (cms): 2.0 Effacement (%): 50 Station: -3 Exam By: Dr. Lerma Datetime: 09/15/2018 20:23 Vaginal Exam Dilatation (cms): 2.5 Effacement (%): 60 Station: -4 Exam By: Radha Roche RN Vaginal Bleeding: None Cervix, Consistency: Moderate Cervix, Position: Posterior Presentation 'A': Unable to Assess Datetime: 09/15/2018 20:07 Monitor Mode: Palpation Quality: Mild Resting Tone [place]: Relaxed Pain Assessment Pain Scale: 6 Pain Presence: Intermittent Pain Type: Cramping Pain Location: Abdomen Datetime: 09/15/2018 20:00 Labor Evaluation Frequency: Irregular Monitor Mode: External Resting Tone [place]: Relaxed Heart Rate FHR Baseline Rate: 135 Monitor Mode: External US Variability: Moderate 6-25 bpm Accelerations: 15X15 Decelerations: None Category: Category I Datetime: 09/15/2018 18:55 Heart Rate FHR Baseline Rate: 125 Monitor Mode: External US Variability: Moderate 6-25 bpm Accelerations: 15X15 Decelerations: None Category: Category I Datetime: 09/15/2018 18:34 Comments: US AT BEDSIDE Datetime: 09/15/2018 18:05 Comments: US AT BEDSIDE Datetime: 09/15/2018 17:26 Stage of : OB Triage Assessment Type: Triage Maternal Assessment Level of Consciousness: Fully Conscious DTR's/Clonus: DTRs 2+; No Clonus Headache: Denies Blurred Vision: No Respiratory Effort: Unlabored; Regular Rhythm; Equal Expansion Breath Sounds, Left: Clear and Equal Breath Sounds, Right: Clear and Equal Nausea/Vomiting: Denies RUQ Epigastric Pain: Denies Lower Extremities Edema: None Degree: None Upper Extremities Edema: None Facial Edema: None Fall Risk Assessment History of Falling: (0) No Secondary Diagnosis: (0) No Ambulatory Aid: (0) Bedrest/Nurse Assist IV Therapy: (0) No Gait: (0) Normal/Bedrest/Immobile Mental Status: (0) Oriented to Own Ability Fall Score: 0 Fall Risk Score Definition: No Risk: No action required Monitor Mode: External Monitor Mode: External US Pain Assessment Pain Scale: 4 Pain Presence: Intermittent Pain Type: Crushing Pain Location: Abdomen Datetime: 08/26/2018 12:43 Time of Arrival: 09/15/2018 17:10 EGA: 34.6 Arrived By: Ambulatory Arrived From: [facility] Chief Complaint: SENT TO R/O PTL Movement: Present Contractions: Irregular Rupture of Membranes: Denies Vaginal Bleeding: Small Vaginal Discharge: Denies Recent Sexual Intercouse: Denies Abdominal Trauma: Not Applicable Patient Complaints: Contractions Datetime: 08/26/2018 10:30 Fall Score: 0 Fall Risk Score Definition: No Risk: No action required Datetime: 08/26/2018 10:29 EGA: 32.0 Datetime: 08/26/2018 10:05 EGA: 31.0 Datetime: 08/19/2018 11:05 Fall Score: 0 Fall Risk Score Definition: No Risk: No action required Datetime: 08/19/2018 11:03 EGA: 31.0 Datetime: 08/16/2018 19:28 Fall Score: 0 Fall Risk Score Definition: No Risk: No action required Datetime: 08/16/2018 19:27 EGA: 30.4 Datetime: 07/05/2018 00:14 EGA: 24.3
--- NOTE | 2018-09-26 12:46 | QN ---
Documentation Comment [facility] OB Triage Note OB Triage Triage Information Date/Time Reason for visit: Polyhydramnios (Patient here for NST and BPP) Weeks of Gestation Patient is a 33-year-old 6 para 4 at 36 weeks and 3 days of gestation with estimated date of delivery October 21, 2018 Patient presents for follow-up on polyhydramnios here for NST and BPP She is gestational diabetic diet controlled Patient reports positive movement denies contractions, denies vaginal bleeding or leaking fluid /Para 6 para 4 Diabetes: gestational (GDM A1) Hypertention: none Objective Heart Rate: 140's Heart Rate Comments heart rate tracing category 1 Contractions: None Results/Medications Imaging Results PROCEDURE: Obstetrical ultrasound for biophysical profile CLINICAL INDICATION: Biophysical profile. . TECHNIQUE: Obstetrical ultrasound of the uterus for biophysical profile. Transabdominal views are obtained. COMPARISON: US PELVIS 09/19/2018 FINDINGS: Single intrauterine gestation. Presentation: Cephalic. Placenta: Anterior. No evidence of placental abruption. No evidence of placenta previa. breathing movement = 2/2 tone = 2/2 motion = 2/2 KAI = 2/2 KAI = 13.6 cm heart rate: 148 beats per minute IMPRESSION: Single intrauterine gestation. Biophysical profile 11/17 RPTAT: AADD .Jae Montero MD, MD Date Time Electronically viewed and signed by .Jae Montero MD, MD on 09/26/2018 11:13 .B/ CC: DAIN VILLANUEVA MD [phone] Disposition: Discharge Assessment/Plan Labor precautions were given kick count instructions were given Patient instructed to follow-up with [facility] in 1 to 2 days Patient instructed to return in 48 hours for repeat NST and BPP Copies To: Copies To: GE ARMSTRONG MD Sep 26, 2018 12:42 GE ARMSTRONG MD Sep 26, 2018 12:46
== END 2018-09-26 11:40 | disposition home or self-care (01) ==
LOC: OBT 10:09 → L-D 10:09 → OBT 11:40
PROVIDERS: ATTEND Obstetrics & Gynecology
DX: O36.8330 Maternal care for abnormalities of the fetal heart rate or rhythm, third trimester, not applicable or unspecified (principal); O40.3XX0 Polyhydramnios, third trimester, not applicable or unspecified; O24.419 Gestational diabetes mellitus in pregnancy, unspecified control; Z3A.36 36 weeks gestation of pregnancy
CPT/HCPCS: 76818; Z7500; G0463

== ENCOUNTER 2018-10-17 06:20 | Inpatient (IN) | payer MEDICAID ==
[~2018-10-17] VITALS: Ht 152.4 cm; Wt 104.5 kg
[2018-10-17] MEDS ORDERED: LACTATED RINGER'S 1,000 ML IV PRN (06:35)
[2018-10-17] MEDS ORDERED: MISOPROSTOL 200 MCG TAB PR PRN ×2 (07:00→23:30)
[2018-10-17] MEDS ORDERED: IBUPROFEN 600 MG TAB PO PRN (07:00)
[2018-10-17] MEDS ORDERED: OXYTOCIN 30 UNITS/LR 500 ML IV SCH ×4 (07:00→23:25)
[2018-10-17] MEDS ORDERED: METHYLERGONOVINE 0.2 MG INJ IM PRN ×2 (07:00→23:30)
[2018-10-17] MEDS ORDERED: CARBOPROST 250 MCG INJ IM PRN ×2 (07:00→23:30)
[2018-10-17] MEDS ORDERED: OXYTOCIN 30 UNITS/LR 500 ML IV PRN ×2 (07:00→23:30)
[2018-10-17] MEDS ORDERED: LIDOCAINE 1% (MPF) 30 ML INJ INJ ONE (07:00)
[2018-10-17] MEDS ORDERED: LIDOCAINE 1% (MPF) 30 ML INJ INJ PRN (07:00)
[2018-10-17] MEDS ORDERED: BUTORPHANOL 2 MG INJ IV PRN (07:00)
[2018-10-17] MEDS: LACTATED RINGER'S 1,000 ML IV SCH ×2 (07:02→21:12)
[2018-10-17 07:33] VITALS: Ht 152.4 cm; Wt 104.5 kg
[2018-10-17] MEDS ORDERED: DEXTROSE 5%-LR 1,000 ML IV SCH (09:07)
--- NOTE | 2018-10-17 09:34 | PREOPHP ---
DATE OF ADMISSION: 10/17/2018 HISTORY OF PRESENT ILLNESS: Ms. Ludivina Degroot is a 33-year-old 6, para 4, EDC 10/21/2018, int rauterine at 39+ weeks gestational age, admitted today for induction secondary to GDM A1 an d history of polyhydramnios. She denies any headache, nausea, vomiting, shortness of breath, or visu al changes. Her care took place at [facility]. MEDICAL HISTORY: GDM A1. MEDICATIONS: vitamins. PAST SURGICAL HISTORY: None. OBSTETRIC HISTORY: x4 vaginal deliveries, x1 missed AB. GYNECOLOGIC HISTORY: 12, regular 3 to 4 days. Denies any sexually transmitted infection. Sexually active with 1 partner. SOCIAL HISTORY: Denies any smoking, drugs or alcohol. FAMILY HISTORY: None. REVIEW OF SYSTEMS: All within normal except history of present illness. PHYSICAL EXAMINATION: HEENT: Within normal. LUNGS: CTA bilateral. CARDIOVASCULAR: S1, S2, regular rhythm. ABDOMEN: Gravid, nontender. Negative CVA bilateral. EXTREMITIES: Negative edema. No calf tenderness. PELVIC: Vaginal exam 380 -2. heart tracing category 1. [place]: Occasional contractions. Barb mated weight of approximately 4000 grams. ASSESSMENT: Intrauterine at 39+ weeks gestational age, GDM A1 with a history of polyhydram nios, admitted for induction. PLAN: The patient consented thoroughly for a vaginal delivery with Pitocin. The patient understands the increased risk for shoulder dystocia and agrees with the above plan. Again, risks, benefits and alternatives were explained. All questions were answered. Dictated By: DAIN PADILLA/FCO Conf#: [id number] DID#: [id number]
--- NOTE | 2018-10-17 16:40 | PN ---
Date/Time of Note Date/Time of Note DATE: 10/17/18 TIME: 16:39 OB Subjective Subjective Subjective Per primary OB request patient to be artificially ruptured Continuous electronic monitor category 2 strip with intermittent variable decelerations positive accelerations baseline of 125 moderate variability Tocometer irregular contractions Sterile vaginal exam /floating Artificial rupture memory deferred at this time given station MILESTONE,JENNIFER HANCOCK Oct 17, 2018 16:40
--- NOTE | 2018-10-17 20:54 | PREAC ---
Date/Time of Note Date/Time of Note DATE: 10/17/18 TIME: 20:52 Anesthesia Eval and Record Evaluation Time Pre-Procedure Interview DATE: 10/17/18 TIME: 20:52 Age 33 Sex female NPO: 8 hrs Preoperative diagnosis IUP Planned procedure L&D Epidural Past Medical History Past Medical History: Includes GI: Obesity : : Surgery & Anesthesia Issues No known issue Meds Anticoagulation: No Beta Ravinder within 24 hr: No Reason Beta Ravinder not given: Pt. not on B-Ravinder Reported Medications Vits W-Ca,Fe,Fa(<1MG) () 1 Tab Tablet 09/08/10 Current Medications Lactated Ringer's 1,000 ml @ 125 mls/hr Q8H IV Last administered on 10/17/18at 07:02; Admin Dose 125 MLS/HR; Start 10/17/18 at 06:35 Butorphanol Tartrate (Stadol) 1 mg Q2H PRN IV .PAIN SCALE 1-5; Start 10/17/18 at 07:00 Lidocaine (Xylocaine 1% (Mpf)) 30 ml ONCE PRN INJ .EPISIOTOMY; Start 10/17/18 at 07:00 Oxytocin/Lactated Ringer's 500 ml @ 500 mls/hr ONCE POST IV ; Start 10/17/18 at 07:00 Oxytocin/Lactated Ringer's 500 ml @ 125 mls/hr POST IV ; Start 10/17/18 at 07:00 Ibuprofen (Motrin) 600 mg ONCE PRN PO .PAIN 1-5; Start 10/17/18 at 07:00 Lactated Ringer's 1,000 ml @ 2,000 mls/hr Q30M PRN IV .ANESTHESIA Last administered on 10/17/18at 20:48; Admin Dose 2,000 MLS/HR; Start 10/17/18 at 06:35 Oxytocin/Lactated Ringer's 500 ml @ 0 mls/hr ONCE PRN IV .VAGINAL BLEEDING; Start 10/17/18 at 07:00 Methylergonovine Maleate (Methergine) 0.2 mg ONCE PRN IM .VAGINAL BLEEDING; Start 10/17/18 at 07:00 Carboprost Tromethamine (Hemabate) 250 mcg ONCE PRN IM .VAGINAL BLEEDING; Start 10/17/18 at 07:00 Misoprostol (Cytotec) 1,000 mcg ONCE PRN VT .VAGINAL BLEEDING; Start 10/17/18 at 07:00 Dextrose/Lactated Ringer's 1,000 ml @ 125 mls/hr Q8H IV Last administered on 10/17/18at 15:23; Admin Dose 125 MLS/HR; Start 10/17/18 at 09:07 Oxytocin/Lactated Ringer's 500 ml @ 0 mls/hr FOR INDUCTION IV Last administered on 10/17/18at 10:26; Admin Dose 1 MLS/HR; Start 10/17/18 at 09:30 Meds reviewed: Yes Allergies Coded Allergies: Penicillins (Verified Allergy, Severe, SOB, 09/26/18) vancomycin (Verified Allergy, Severe, RASH, 09/26/18) Allergies Reviewed: Yes Labs/Studies Labs Reviewed: Reviewed by anesthesiologist Result Diagram: 10/17/18 0640 10/17/18 0640 Laboratory Tests 10/17/18 06:40 Blood Bank Test 10/17/18 06:40 Antibody Screen NEGATIVE Blood Type O POSITIVE Rh Immune Globulin Candidate NO test: Positive Studies: ECG Pre-procedure Exam Last vitals BP:122/56, P:78, Spo2:100%, T:98,8 Airway: Adequate mouth opening, Adequate thyromental dist Mallampati: Mallampati II Teeth: Normal Lung: Normal Heart: Normal ASA Physical Status ASA physical status: 2 Emergency: None Planned Anesthetic Neuraxial: Epidural Planned Pain Management Parenteral pain med Pre-operative Attestations Prior to commencing anesthesia and surgery, the patient was re-evaluated, there was verification of: *The patient's identity *The results of appropriate recent lab work and preoperative vital signs *The above evaluation not changing prior to induction *Anesthetic plan, risk benefits, alternative and complications discussed with patient/family; questions answered; patient/family understands, accepts and wishes to proceed. GARY CLARKE MD Oct 17, 2018 20:54
[2018-10-17] MEDS ORDERED: ONDANSETRON 4 MG INJ IV PRN ×2 (21:00→23:30)
[2018-10-17] MEDS ORDERED: FENTAnyl 2MCG/ML-ROPIV 0.2% 100 ML BAG EPI SCH (21:00)
[2018-10-17] MEDS ORDERED: NALOXONE (0.4 MG/ML) INJ IV PRN (21:00)
[2018-10-17] MEDS ORDERED: DIPHENHYDRAMINE 50 MG INJ IV PRN (21:00)
--- NOTE | 2018-10-17 23:24 | LDN ---
Date/Time of Note Date/Time of Note DATE: 10/17/18 TIME: 23:23 Delivery Summary Weeks of Gestation 39 Placenta Delivered: Spontaneously Meconium: none Perineal laceration: 1 Laceration repair: 1st degree perineal laceration repair with 4-0 chromic Anesthesia type: Epidural Estimated blood loss: 150 Sponge & Needle done & correct: Yes All needle counts correct: Yes Any foreign bodies felt in the: No Infant Delivery Information Sex Infant Sex: male Apgars 1 Minute: 8 5 Minute: 9 Suctioning Nose & mouth suctioned at ro: No Delee suction performed: No Umbilical Cord Umbilical cord with: 3 Vessels Cord presentations: nuchal cord Nuchal cord present X: 1 Cord Blood was obtained: Yes DAIN VILLANUEVA MD Oct 17, 2018 23:24
[2018-10-17] MEDS ORDERED: LANOLIN HPA 1 PKT TOP PRN (23:30)
[2018-10-17] MEDS ORDERED: OXYCODONE/ASPIRIN (4.88/325) TAB PO PRN ×2 (23:30)
[2018-10-17] MEDS ORDERED: BENZOCAINE 20% 56 ML SPRAY TOP PRN (23:30)
[2018-10-17] MEDS ORDERED: WITCH HAZEL/GLYCERIN PAD PR PRN (23:30)
[2018-10-17] MEDS ORDERED: NACL 0.9% 3 ML SYG IV SCH (23:30)
[2018-10-18] VITALS (7 sets, daily range): BP systolic 101–124; BP diastolic 54–59; PULSE 47–57; RESP 18–24
[2018-10-18] MEDS: IBUPROFEN 800 MG TAB PO SCH ×4 (05:12→18:11)
[2018-10-18] MEDS ORDERED: ACCU-CHEK XX SCH (06:00)
--- NOTE | 2018-10-18 19:11 | DS ---
Date/Time of Note Date/Time of Note DATE: 10/18/18 TIME: 19:11 Obstetrical Discharge Record Final Diagnosis Final Diagnosis: Term delivered Vaginal Delivery Obstetrical Delivery: Spontaneous, Laceration, Repaired Condition on Discharge Physical Assessment Last Vitals: stable afebrile Voiding: Yes Bowel Movement: Yes Breast: Soft, non-tender, Filling Fundus: Firm Abdomen and Incision: soft nt Calf Tenderness: No Patient Condition: Fair DAIN VILLANUEVA MD Oct 18, 2018 19:11
--- NOTE | 2018-10-18 19:12 | PD.PPDC ---
DIESEL TECHNICIAN MECHANIC Discharge Instruction Condition [id number] Patient Condition: [id number] Fair Diet Rfyin2Is Diet: Taygd7c Resume Regular Diet Activity/Restrictions [id number] Activity: Wmiug4n Normal Activity May Shower Futeq6Ez Restrictions: Tudgu2a No Exercising No Lifting No Driving No Sexual Activity Nothing in the Vagina No Fraser No Tampons, douche Follow-up Follow-up with Physician: 3, Week/Weeks Return to clinic for Uukws6Mo CREATIVE STRATEGIST Instructions: Nndmu1y Fever greater than 101 Chills Worsening abdominal pain Excessive Vaginal Bleeding More than 2 pads per hour Unable to tolerate diet [id number] OB Instructions: Bqage5h Breast Tenderness Depression Blurried Vision Headache [id number] Surgical Instructions: Gqtir8f Incisional Drainage Incisional Redness DAIN VILLANUEVA MD Oct 18, 2018 19:12
[2018-10-19] MEDS: IBUPROFEN 800 MG TAB PO SCH ×3 (00:20→12:29)
[2018-10-19 04:00] VITALS: BP 117/63; PULSE 50; RESP 18
[2018-10-19 08:00] VITALS: BP 99/55; PULSE 68; RESP 18
--- NOTE | 2018-10-19 09:06 | PAC ---
Date/Time of Note Date/Time of Note DATE: 10/19/18 TIME: 09:06 Post-Anesthesia Notes Post-Anesthesia Note Last documented vital signs Vital Signs Date Temp Pulse Resp B/P (MAP) Pulse Ox O2 O2 Flow FiO2 Time Delivery Rate 10/19/18 98.4 68 18 99/55 (70) Room Air 08:00 Activity: WNL Respiratory function: WNL Cardiovascular function: WNL Mental status: Baseline Pain reasonably controlled: Yes Hydration appropriate: Yes Nausea/Vomiting absent: Yes Comments BP:112/56, P:78, Spo2:100%, T:98,9 GARY CLARKE MD Oct 19, 2018 09:06
--- NOTE | 2018-10-20 15:16 | DELSUM ---
Delivery Summary A-C Datetime Report Generated by CPN: 10/20/2018 15:16 DELIVERY PERSONNEL Vegetable Cutter: Fistell, Laci MATERNAL INFORMATION Delivery Anesthesia: Epidural Medications in Delivery: PITOCIN 30 UNITS IN 500 CC L/R INJ IV BOLUS Delivery QBL (ml): 150 Placenta Cultured: No Maternal Complications: Other LABOR SUMMARY EDC: 10/21/2018 00:00 No. Babies in Womb: 1 Attempted: No Labor Anesthesia: Epidural LABOR INFORMATION Reason for Induction: Macrosomia; Polyhydramnios Reason for Induction- Other: GDM Onset of Labor: 10/17/2018 10:17 Complete Dilatation: 10/17/2018 23:06 Group B Beta Strep: Negative Antibiotics # of Doses: 00 Steroids Given: None Reason Steroids Not Administered: Not Applicable MEMBRANES Membranes Rupture Method: Artificial Rupture of Membranes: 10/17/2018 20:10 Length of Rupture (hr): 3.08 Amniotic Fluid Color: Clear Amniotic Fluid Amount: Copious Amniotic Fluid Odor: None STAGES OF LABOR Stage 1 hr: 12 Stage 1 min: 49 Stage 2 hr: 0 Stage 2 min: 9 Stage 3 hr: 0 Stage 3 min: 3 Total Time in Labor hr: 13 Total Time in Labor min: 1 VAGINAL DELIVERY Episiotomy: None Laceration Extension: First Degree Laceration Type: Perineal Laceration Repair: Yes Initial Vag Sponge Count: 10 Final Vag Sponge Count: 10 Initial Vag Sharps Count: 1 Final Vag Sharps Count: 2 Sponge Count Correct: Yes; Vaginal Sweep Performed Sharps Count Correct: Yes BABY A INFORMATION Infant Delivery Date/Time: 10/17/2018 23:15 Method of Delivery: Vaginal Born in Route : No : N/A Forceps: N/A Vacuum Extraction: N/A Shoulder Dystocia : N/A SHOULDER DYSTOCIA BABY A Delivery Date/Time: 10/17/2018 23:15 PRESENTATION/POSITION BABY A Presentation: Cephalic Cephalic Presentation: Vertex Vertex Position: Left Occipital Anterior Breech Presentation: N/A PLACENTA INFORMATION BABY A Placenta Delivery Time : 10/17/2018 23:18 Placenta Method of Delivery: Spontaneous Placenta Status: Delivered SCORES BABY A Heart Rate 1 min: >100 bpm Resp Effort 1 min: Good Cry Reflex Irritability 1 min: Cough/Sneeze/Pulls Away Muscle Tone 1 min: Active Motion Color 1 min: Blue/Pale Resuscitation Effort 1 min: Tactile Stimulation SCORE 1 MIN: 8 Heart Rate 5 min: >100 bpm Resp Effort 5 min: Good Cry Reflex Irritability 5 min: Cough/Sneeze/Pulls Away Muscle Tone 5 min: Active Motion Color 5 min: Body [place], Extremit Blue SCORE 5 MIN: 9 INFORMATION BABY A Gestational Age at Delivery: 39.4 Gestational Status: Full Term- 39- 40.6 Weeks Outcome : Liveborn, with signs of life Condition : Stable Infant Sex: Male IDENTIFICATION/MEDS BABY A ID Band Number: [id number] ID Band Location: Right Leg; Left Arm Sensor Applied: Yes Sensor Number: [id number] Sensor Location : Cord Clamp Vitamin K Given : Not Given Erythromycin Given: Not Given WEIGHT/LENGTH BABY A Infant Birthweight (gm): 3675 Weight (lb): 8 Weight (oz): 2 Infant Length (in): 19.75 Length (cm): 50.17 CORD INFORMATION BABY A No. Cord Vessels: 3 Nuchal Cord : Around Neck x1, Loose Cord Blood Taken: Yes Infant Suction: Mouth; Nose ASSESSMENT BABY A Complications: None Physical Findings at Delivery: Within Normal Limits Infant Respirations: Appears Normal [place] Specials/ALS Called : No Care By: /Carlos Eduardo ALVAREZ RN Transferred To: Remains with Mother
== END 2018-10-19 14:55 | disposition home or self-care (01) | DRG 807 ==
LOC: L-D 06:20 → PP1 10-18 02:00
PROVIDERS: ADMIT Obstetrics & Gynecology; ATTEND Obstetrics & Gynecology
PROC: 0HQ9XZZ Repair Perineum Skin, External Approach (ICD-10-PCS; 2018-10-17)
PROC: 3E033VJ Introduction of Other Hormone into Peripheral Vein, Percutaneous Approach (ICD-10-PCS; 2018-10-17)
PROC: 10E0XZZ Delivery of Products of Conception, External Approach (ICD-10-PCS; principal; 2018-10-17 08:00)
DX: O24.429 Gestational diabetes mellitus in childbirth, unspecified control (principal); Z37.0 Single live birth; O70.0 First degree perineal laceration during delivery; O69.81X0 Labor and delivery complicated by cord around neck, without compression, not applicable or unspecified; Z3A.39 39 weeks gestation of pregnancy
CPT/HCPCS: 62322; 76815; 82947; 82962; 85025; 85610; 85730; 86592; 86850; 86900; 86901; 87340; 99464; A4310; J2590; J3010; J7120; J7121

== ENCOUNTER 2018-12-09 06:10 | Day surgery (SDC) | payer MEDICAID ==
[2018-12-08 12:15] VITALS: BMI 39.1
[2018-12-09] VITALS (12 sets, daily range): BP systolic 98–136; BP diastolic 52–70; PULSE 46–52; RESP 15–22; Ht 152.4 cm; Wt 91.2 kg
[~2018-12-09] VITALS: Ht 152.4 cm; Wt 91.2 kg
[2018-12-09] MEDS ORDERED: BUPIVACAINE 0.5%/EPI (SDV) 30 ML INJ ONE (07:36)
[2018-12-09] MEDS ORDERED: ROCURONIUM 50 MG INJ ONE (07:40)
[2018-12-09] MEDS ORDERED: FENTAnyl 50 MCG/ML VIAL ONE (07:40)
[2018-12-09] MEDS ORDERED: ONDANSETRON 4 MG INJ ONE (07:40)
[2018-12-09] MEDS ORDERED: DEXAMETHASONE 4 MG/ML 5 ML INJ ONE (07:40)
[2018-12-09] MEDS ORDERED: METOCLOPRAMIDE 10 MG INJ ONE (07:40)
[2018-12-09] MEDS ORDERED: LIDOCAINE 2% (SDV) 5 ML INJ ONE (07:40)
[2018-12-09] MEDS ORDERED: MIDAZOLAM 1 MG/ML 2 ML INJ ONE (07:40)
[2018-12-09] MEDS ORDERED: SUGAMMADEX SODIUM 200 MG/2 ML VIAL IV ONE (07:40)
[2018-12-09] MEDS ORDERED: PROPOFOL 20 ML ONE (07:40)
[2018-12-09] MEDS ORDERED: BUPIVACAINE 0.5%/EPI (SDV) 30 ML INJ INJ ONE (07:52)
[2018-12-09] MEDS ORDERED: LACTATED RINGER'S 1,000 ML IV SCH (08:00)
[2018-12-09] MEDS ORDERED: CLINDAMYCIN 600 MG/D5W (PMX) 50 ML IVPB ONE (08:18)
[2018-12-09] MEDS ORDERED: HYDROmorphONE 1 MG/5 ML IV SYRINGE IV ONE (09:27)
[2018-12-09] MEDS ORDERED: PROCHLORPERAZINE 10 MG INJ IV PRN (10:00)
[2018-12-09] MEDS ORDERED: OXYCODONE/ACETAMINOPHEN (5/325) TAB PO PRN (10:00)
[2018-12-09] MEDS ORDERED: ONDANSETRON 4 MG INJ IV PRN (10:00)
[2018-12-09] MEDS ORDERED: HYDROmorphONE 1 MG/5 ML IV SYRINGE IV PRN (10:00)
[2018-12-09] MEDS ORDERED: FENTAnyl 50 MCG/ML VIAL IV PRN (10:00)
[2018-12-09] MEDS ORDERED: MEPERIDINE 25 MG INJ IV PRN (10:00)
== END 2018-12-09 11:40 | disposition home or self-care (01) ==
LOC: SDS 06:10
PROVIDERS: ATTEND Obstetrics & Gynecology
DX: Z30.2 Encounter for sterilization (principal)
CPT/HCPCS: 85025; 86850; 86900; 86901; J1100; J1170; J2250; J2405; J2765; J3010